=== PATIENT | male | born 1950 | race Caucasian/White ===

== ENCOUNTER 2018-02-07 16:44 | Inpatient (IN) | payer MEDICAID, OTHER ==
[2018-02-07 17:36] LABS: ADD MAN DIFF? NO
[2018-02-07 17:40] LABS: WHITE BLOOD COUNT 19.4 10^3/ul (4.8-10.8)
[2018-02-07 17:40] LABS: BASOPHILS % 0.2 % (0.0-2.0); EOSINOPHILS % 0.1 % (0.0-7.0); HEMATOCRIT 26.1 % (42.0-52.0); HEMOGLOBIN 8.4 g/dl (14.0-18.0); LYMPHOCYTES # 1.3 10^3/ul (0.8-2.9); LYMPHOCYTES % 6.6 % (15.0-51.0); MEAN CORPUSCULAR HEMOGLOBIN 26.7 pg (29.0-33.0); MEAN CORPUSCULAR HGB CONC 32.2 g/dl (32.0-37.0); MEAN CORPUSCULAR VOLUME 82.9 fl (82.0-101.0); MEAN PLATELET VOLUME 10.4 fl (7.4-10.4); MONOCYTE # 1.1 10^3/ul (0.3-0.9); MONOCYTES % 5.8 % (0.0-11.0); NEUTROPHIL # 16.8 10^3/ul (1.6-7.5); NEUTROPHILS % 86.8 % (39.0-77.0); PLATELET COUNT 215 10^3/UL (140-415); RED BLOOD COUNT 3.15 10^6/ul (4.70-6.10); RED CELL DISTRIBUTION WIDTH 15.9 % (11.5-14.5)
[2018-02-07 17:59] LABS: INR 1.22; PROTIME 15.6 Sec (11.9-14.9); PT RATIO 1.2
[2018-02-07 18:00] LABS: ALANINE AMINOTRANSFERASE 36 IU/L (13-69); ALBUMIN 2.8 g/dl (3.3-4.9); ALKALINE PHOSPHATASE 367 IU/L (42-121); ANION GAP 15 (5-13); ASPARTATE AMINO TRANSFERASE 31 IU/L (15-46); BILIRUBIN,INDIRECT 0.2 mg/dl (0-1.1); BILIRUBIN,TOTAL 0.2 mg/dl (0.2-1.3); BLOOD UREA NITROGEN 88 mg/dl (7-20); CALCIUM 7.7 mg/dl (8.4-10.2); CARBON DIOXIDE 21 mmol/L (21-31); CHLORIDE 98 mmol/L (97-110); CREATININE 2.68 mg/dl (0.61-1.24); Estimated GFR 24 mL/min (>60); GLUCOSE 196 mg/dl (70-220); PARTIAL THROMBOPLASTIN TIME 33.3 Sec (23.0-35.0); POTASSIUM 3.4 mmol/L (3.5-5.1); SODIUM 134 mmol/L (135-144); TOTAL PROTEIN 6.8 g/dl (6.1-8.1)
[2018-02-07] MEDS ORDERED: PIPER-TAZO 3.375 GM IV (PMX) 100 ML IVPB (18:00)
[2018-02-07] MEDS: SOD CHLORIDE 0.9% 1,910 ML IV (18:05)
[2018-02-07 18:10] LABS: TROPONIN-I < 0.012 ng/ml (0.000-0.120)
[2018-02-07] MEDS: PIPER-TAZO 2.25 GM (PMX) 50 ML IVPB (18:59)
[2018-02-07 19:34] LABS: ADD UMIC YES; UR ASCORBIC ACID NEGATIVE (NEGATIVE); UR BACTERIA MODERATE /HPF (NONE SEEN); UR BILIRUBIN (Dip) NEGATIVE (NEGATIVE); UR BLOOD (Dip) 2+ mg/dL (NEGATIVE); UR CLARITY TURBID (CLEAR); UR COLOR YELLOW (YELLOW); UR GLUCOSE (Dip) NEGATIVE (NEGATIVE); UR KETONES (Dip) NEGATIVE (NEGATIVE); UR LEUKOCYTE ESTERASE (Dip) 3+ Leu/ul (NEGATIVE); UR MUCUS FEW /HPF (NONE SEEN); UR NITRITE (Dip) NEGATIVE (NEGATIVE); UR NONSQUAMOUS EPITHELIAL CELL 1 /HPF (NONE SEEN); UR RBC 79 /HPF (0-5); UR SPECIFIC GRAVITY (Dip) 1.005 (1.003-1.030); UR SQUAMOUS EPITHELIAL CELL FEW /HPF (FEW); UR TOTAL PROTEIN (Dip) 1+ mg/dl (NEGATIVE); UR UROBILINOGEN (Dip) NEGATIVE (NEGATIVE); UR WBC > 182 /HPF (0-5)
[2018-02-07 19:54] LABS: PROSTATE SPECIFIC ANTIGEN 0.7 ng/ml (0.0-4.0)
[2018-02-07] MEDS: VANCOMYCIN 1 GM (PMX) 250 ML IVPB (19:57)
[2018-02-07] MEDS ORDERED: ONDANSETRON 4 MG INJ IV (20:00)
[2018-02-07] MEDS ORDERED: NACL 0.9% 3 ML SYG IV (20:00)
[2018-02-07] MEDS: CHLORHEXIDINE GLUCONATE 15 ML UD CUP MT ×2 (20:00→23:58)
[2018-02-07 22:59] LABS: LACTIC ACID 3.6 mmol/L (0.5-2.0)
[2018-02-07] MEDS ORDERED: HEPARIN 5,000 UNIT/0.5 ML VIAL (23:54)
[2018-02-07] MEDS: PIPER-TAZO 3.375 GM IV (PMX) 100 ML IVPB (23:58)
[2018-02-08] MEDS: HEPARIN 5,000 UNIT/1 ML VIAL SC ×4 (00:11→21:27)
[2018-02-08] MEDS: SOD CHLORIDE 0.9% 500 ML IV (00:19)
[2018-02-08] MEDS ORDERED: PIPER-TAZO 3.375 GM IV (PMX) 100 ML IVPB (02:00)
[2018-02-08] MEDS ORDERED: PENDING SANTYL ORDER FOR WOUND CARE XX (04:30)
[2018-02-08 05:34] LABS: ADD MAN DIFF? NO
[2018-02-08 05:38] LABS: WHITE BLOOD COUNT 16.3 10^3/ul (4.8-10.8)
[2018-02-08 05:38] LABS: BASOPHILS % 0.1 % (0.0-2.0); EOSINOPHILS % 0.1 % (0.0-7.0); HEMOGLOBIN 7.9 g/dl (14.0-18.0); LYMPHOCYTES # 0.7 10^3/ul (0.8-2.9); MEAN CORPUSCULAR HEMOGLOBIN 26.4 pg (29.0-33.0); MEAN CORPUSCULAR HGB CONC 31.6 g/dl (32.0-37.0); MEAN CORPUSCULAR VOLUME 83.6 fl (82.0-101.0); MEAN PLATELET VOLUME 10.5 fl (7.4-10.4); MONOCYTE # 0.6 10^3/ul (0.3-0.9); MONOCYTES % 3.7 % (0.0-11.0); NEUTROPHIL # 14.9 10^3/ul (1.6-7.5); NEUTROPHILS % 91.3 % (39.0-77.0); PLATELET COUNT 207 10^3/UL (140-415); RED BLOOD COUNT 2.99 10^6/ul (4.70-6.10); RED CELL DISTRIBUTION WIDTH 16.2 % (11.5-14.5)
[2018-02-08 05:57] LABS: HEMOGLOBIN A1C 6.1 % (0-5.9); LACTIC ACID 1.8 mmol/L (0.5-2.0)
[2018-02-08 06:00] LABS: ALANINE AMINOTRANSFERASE 33 IU/L (13-69); ALBUMIN 2.6 g/dl (3.3-4.9); ALBUMIN/GLOBULIN RATIO 0.78; ALKALINE PHOSPHATASE 306 IU/L (42-121); ANION GAP 13 (5-13); ASPARTATE AMINO TRANSFERASE 25 IU/L (15-46); BILIRUBIN,INDIRECT 0.1 mg/dl (0-1.1); BILIRUBIN,TOTAL 0.1 mg/dl (0.2-1.3); BLOOD UREA NITROGEN 88 mg/dl (7-20); CALCIUM 7.4 mg/dl (8.4-10.2); CARBON DIOXIDE 20 mmol/L (21-31); CHLORIDE 104 mmol/L (97-110); CHOLESTEROL 90 mg/dl (100-200); CREATININE 2.75 mg/dl (0.61-1.24); Estimated GFR 23 mL/min (>60); GLUCOSE 176 mg/dl (70-220); HDL CHOLESTEROL 9 mg/dl (30-78); LDL CHOLESTEROL,CALCULATED 28 mg/dl; MAGNESIUM 2.6 mg/dl (1.7-2.5); PHOSPHORUS 4.4 mg/dl (2.5-4.9); POTASSIUM 3.5 mmol/L (3.5-5.1); SODIUM 137 mmol/L (135-144); TOTAL PROTEIN 5.9 g/dl (6.1-8.1); TRIGLYCERIDES 266 mg/dl (0-149)
[2018-02-08] MEDS ORDERED: HEPARIN 5,000 UNIT/0.5 ML VIAL ×3 (06:17→21:03)
[2018-02-08] MEDS: PIPER-TAZO 3.375 GM IV (PMX) 100 ML IVPB ×3 (07:01→21:15)
[2018-02-08] MEDS: CHLORHEXIDINE GLUCONATE 15 ML UD CUP MT ×2 (08:41→21:15)
[2018-02-08] MEDS ORDERED: VANCOMYCIN IV PER PHARMACY XX (09:30)
[2018-02-08] MEDS: INFLUENZA VIRUS VACCINE 0.5 ML (DISPENSING) IM* (10:18)
[2018-02-08] MEDS: COLLAGENASE 5 GM (UD JAR) TOP (12:19)
[2018-02-08] MEDS: 1/2 NS + KCL 20 MEQ 1,000 ML IV (15:55)
[2018-02-09] MEDS: 1/2 NS + KCL 20 MEQ 1,000 ML IV ×3 (01:30→23:39)
[2018-02-09] MEDS ORDERED: HEPARIN 5,000 UNIT/0.5 ML VIAL ×3 (05:14→20:11)
[2018-02-09] MEDS: PIPER-TAZO 3.375 GM IV (PMX) 100 ML IVPB ×3 (05:22→21:07)
[2018-02-09] MEDS: HEPARIN 5,000 UNIT/1 ML VIAL SC ×3 (05:26→21:38)
[2018-02-09 06:16] LABS: ADD MAN DIFF? NO
[2018-02-09 06:28] LABS: WHITE BLOOD COUNT 13.4 10^3/ul (4.8-10.8)
[2018-02-09 06:28] LABS: BASOPHILS % 0.1 % (0.0-2.0); EOSINOPHILS % 0.1 % (0.0-7.0); HEMATOCRIT 25.3 % (42.0-52.0); HEMOGLOBIN 7.9 g/dl (14.0-18.0); LYMPHOCYTES # 0.9 10^3/ul (0.8-2.9); LYMPHOCYTES % 6.9 % (15.0-51.0); MEAN CORPUSCULAR HEMOGLOBIN 26.4 pg (29.0-33.0); MEAN CORPUSCULAR HGB CONC 31.2 g/dl (32.0-37.0); MEAN CORPUSCULAR VOLUME 84.6 fl (82.0-101.0); MEAN PLATELET VOLUME 10.3 fl (7.4-10.4); MONOCYTE # 0.6 10^3/ul (0.3-0.9); MONOCYTES % 4.7 % (0.0-11.0); NEUTROPHIL # 11.6 10^3/ul (1.6-7.5); NEUTROPHILS % 86.3 % (39.0-77.0); PLATELET COUNT 258 10^3/UL (140-415); RED BLOOD COUNT 2.99 10^6/ul (4.70-6.10); RED CELL DISTRIBUTION WIDTH 16.4 % (11.5-14.5)
[2018-02-09 06:56] LABS: ANION GAP 12 (5-13); BLOOD UREA NITROGEN 77 mg/dl (7-20); CALCIUM 7.6 mg/dl (8.4-10.2); CARBON DIOXIDE 19 mmol/L (21-31); CHLORIDE 110 mmol/L (97-110); CREATININE 2.65 mg/dl (0.61-1.24); Estimated GFR 24 mL/min (>60); GLUCOSE 190 mg/dl (70-220); POTASSIUM 3.3 mmol/L (3.5-5.1); SODIUM 141 mmol/L (135-144)
[2018-02-09 07:07] LABS: BLOOD UREA NITROGEN 77 mg/dl (7-20)
[2018-02-09 07:16] LABS: VANCOMYCIN,RANDOM 7.9 ug/ml
[2018-02-09] MEDS: CHLORHEXIDINE GLUCONATE 15 ML UD CUP MT ×2 (07:44→21:07)
[2018-02-09] MEDS: COLLAGENASE 5 GM (UD JAR) TOP (08:33)
[2018-02-09 10:57] LABS: INR 1.24; PROTIME 15.8 Sec (11.9-14.9); PT RATIO 1.2
[2018-02-09 10:58] LABS: PARTIAL THROMBOPLASTIN TIME 34.8 Sec (23.0-35.0)
[2018-02-09] MEDS: POTASSIUM CHLORIDE (SR) 20 MEQ TAB PO (15:44)
[2018-02-09] MEDS: VANCOMYCIN 1.25 GM in SOD CHLORIDE 0.9% 250 ML IVPB (16:58)
[2018-02-10] MEDS: ACETAMINOPHEN 325 MG TAB PO (01:58)
[2018-02-10] MEDS: HEPARIN 5,000 UNIT/1 ML VIAL SC ×3 (04:25→20:44)
[2018-02-10] MEDS: 1/2 NS + KCL 20 MEQ 1,000 ML IV (04:52)
[2018-02-10] MEDS: PIPER-TAZO 3.375 GM IV (PMX) 100 ML IVPB ×2 (04:57→15:11)
[2018-02-10 06:12] LABS: ADD MAN DIFF? NO
[2018-02-10 06:25] LABS: BASOPHILS % 0.2 % (0.0-2.0); EOSINOPHILS % 0.2 % (0.0-7.0); LYMPHOCYTES # 0.8 10^3/ul (0.8-2.9); LYMPHOCYTES % 6.6 % (15.0-51.0); MEAN CORPUSCULAR HEMOGLOBIN 26.4 pg (29.0-33.0); MEAN CORPUSCULAR HGB CONC 30.8 g/dl (32.0-37.0); MEAN CORPUSCULAR VOLUME 85.8 fl (82.0-101.0); MONOCYTE # 0.2 10^3/ul (0.3-0.9); MONOCYTES % 1.7 % (0.0-11.0); NEUTROPHIL # 10.7 10^3/ul (1.6-7.5); NEUTROPHILS % 89.2 % (39.0-77.0); PLATELET COUNT 266 10^3/UL (140-415); RED BLOOD COUNT 3.03 10^6/ul (4.70-6.10); RED CELL DISTRIBUTION WIDTH 16.6 % (11.5-14.5)
[2018-02-10 06:54] LABS: ANION GAP 11 (5-13); BLOOD UREA NITROGEN 70 mg/dl (7-20); CALCIUM 7.9 mg/dl (8.4-10.2); CARBON DIOXIDE 18 mmol/L (21-31); CHLORIDE 113 mmol/L (97-110); CREATININE 2.78 mg/dl (0.61-1.24); Estimated GFR 23 mL/min (>60); GLUCOSE 128 mg/dl (70-220); POTASSIUM 3.9 mmol/L (3.5-5.1); SODIUM 142 mmol/L (135-144)
[2018-02-10] MEDS ORDERED: CEFAZOLIN 1 GM INJ (07:00)
[2018-02-10] MEDS ORDERED: EPHEDrine SULFATE 50 MG/5 ML SYG (07:00)
[2018-02-10] MEDS: CHLORHEXIDINE GLUCONATE 15 ML UD CUP MT ×2 (08:00→20:43)
[2018-02-10] MEDS: COLLAGENASE 5 GM (UD JAR) TOP (09:11)
[2018-02-10] MEDS ORDERED: PROPOFOL 20 ML (11:38)
[2018-02-10] MEDS ORDERED: LIDOCAINE 2% (SDV) 5 ML INJ (11:38)
[2018-02-10] MEDS ORDERED: ROCURONIUM 50 MG INJ (11:38)
[2018-02-10] MEDS ORDERED: NEOSTIGMINE 3 MG/3 ML SYRINGE (11:39)
[2018-02-10] MEDS ORDERED: GLYCOPYRROLATE 0.4 MG INJ (11:39)
[2018-02-10] MEDS ORDERED: SUCCINYLCHOLINE CHLORIDE 100 MG/5 ML SYG IV (11:39)
[2018-02-10] MEDS ORDERED: MEPERIDINE 25 MG INJ IV (13:00)
[2018-02-10] MEDS ORDERED: HYDROmorphONE 1 MG/5 ML IV SYRINGE IV (13:00)
[2018-02-10] MEDS ORDERED: EPHEDrine SULFATE 50 MG/5 ML SYG IV (13:00)
[2018-02-10] MEDS ORDERED: ONDANSETRON 4 MG INJ IV (13:00)
[2018-02-10] MEDS ORDERED: MIDAZOLAM 1 MG/ML 2 ML INJ IV (13:00)
[2018-02-10] MEDS ORDERED: hydrALAzine 20 MG INJ IV (13:00)
[2018-02-10] MEDS ORDERED: LABETALOL HCL 20MG INJ IV (13:00)
[2018-02-10] MEDS ORDERED: FENTAnyl 50 MCG/ML VIAL IV ×3 (13:00)
[2018-02-10] MEDS ORDERED: OXYCODONE/ACETAMINOPHEN (5/325) TAB PO ×2 (13:00)
[2018-02-10] MEDS ORDERED: METOCLOPRAMIDE 10 MG INJ IV (13:00)
[2018-02-10] MEDS ORDERED: DIPHENHYDRAMINE 50 MG INJ IV (13:00)
[2018-02-10] MEDS: HYDROmorphONE 1 MG/5 ML IV SYRINGE IV ×4 (14:04→14:58)
[2018-02-10] MEDS: IOHEXOL 300MG/ML 30 ML BTL (14:15)
[2018-02-10] MEDS ORDERED: VANCOMYCIN IV PER PHARMACY XX (16:30)
[2018-02-10] MEDS: LEVOFLOXACIN 500 MG TAB PO (17:33)
[2018-02-10] MEDS ORDERED: HEPARIN 5,000 UNIT/0.5 ML VIAL (20:15)
[2018-02-11] MEDS: 1/2 NS + KCL 20 MEQ 1,000 ML IV ×2 (02:32→16:39)
[2018-02-11] MEDS ORDERED: HEPARIN 5,000 UNIT/0.5 ML VIAL ×3 (05:41→21:38)
[2018-02-11] MEDS: HEPARIN 5,000 UNIT/1 ML VIAL SC ×3 (06:17→22:15)
[2018-02-11 06:19] LABS: WHITE BLOOD COUNT 14.7 10^3/ul (4.8-10.8)
[2018-02-11 06:19] LABS: ADD MAN DIFF? NO; BASOPHILS % 0.1 % (0.0-2.0); EOSINOPHILS # 0.1 10^3/ul (0.0-0.5); EOSINOPHILS % 0.3 % (0.0-7.0); HEMATOCRIT 25.9 % (42.0-52.0); HEMOGLOBIN 7.8 g/dl (14.0-18.0); LYMPHOCYTES # 1.1 10^3/ul (0.8-2.9); LYMPHOCYTES % 7.5 % (15.0-51.0); MEAN CORPUSCULAR HEMOGLOBIN 26.6 pg (29.0-33.0); MEAN CORPUSCULAR HGB CONC 30.1 g/dl (32.0-37.0); MEAN CORPUSCULAR VOLUME 88.4 fl (82.0-101.0); MEAN PLATELET VOLUME 10.2 fl (7.4-10.4); MONOCYTE # 0.6 10^3/ul (0.3-0.9); MONOCYTES % 4.3 % (0.0-11.0); NEUTROPHIL # 12.6 10^3/ul (1.6-7.5); NEUTROPHILS % 85.8 % (39.0-77.0); PLATELET COUNT 317 10^3/UL (140-415); RED BLOOD COUNT 2.93 10^6/ul (4.70-6.10); RED CELL DISTRIBUTION WIDTH 16.6 % (11.5-14.5)
[2018-02-11 06:54] LABS: VANCOMYCIN,RANDOM 13.8 ug/ml
[2018-02-11 06:58] LABS: ANION GAP 15 (5-13); BLOOD UREA NITROGEN 68 mg/dl (7-20); CALCIUM 7.8 mg/dl (8.4-10.2); CARBON DIOXIDE 15 mmol/L (21-31); CHLORIDE 110 mmol/L (97-110); CREATININE 3.06 mg/dl (0.61-1.24); Estimated GFR 21 mL/min (>60); GLUCOSE 189 mg/dl (70-220); POTASSIUM 4.2 mmol/L (3.5-5.1); SODIUM 140 mmol/L (135-144)
[2018-02-11] MEDS: COLLAGENASE 5 GM (UD JAR) TOP (08:30)
[2018-02-11] MEDS: CHLORHEXIDINE GLUCONATE 15 ML UD CUP MT ×2 (08:30→21:44)
[2018-02-11] MEDS: AMPICILLIN 1 GM/NS (PMX) 50 ML IVPB (16:38)
[2018-02-11] MEDS: LEVOFLOXACIN 250 MG TAB PO (18:37)
[2018-02-11] MEDS: L ACIDOPHIL/B LACTIS/B LONGUM CAPSULE PO (21:43)
[2018-02-12] MEDS: AMPICILLIN 1 GM/NS (PMX) 50 ML IVPB ×3 (01:33→21:17)
[2018-02-12] MEDS: 1/2 NS + KCL 20 MEQ 1,000 ML IV ×2 (04:59→14:07)
[2018-02-12] MEDS ORDERED: HEPARIN 5,000 UNIT/0.5 ML VIAL ×3 (05:14→21:10)
[2018-02-12] MEDS: HEPARIN 5,000 UNIT/1 ML VIAL SC ×3 (05:23→22:02)
[2018-02-12] MEDS: L ACIDOPHIL/B LACTIS/B LONGUM CAPSULE PO ×2 (09:09→21:17)
[2018-02-12] MEDS: CHLORHEXIDINE GLUCONATE 15 ML UD CUP MT ×2 (09:09→20:44)
[2018-02-12] MEDS: COLLAGENASE 5 GM (UD JAR) TOP (09:09)
[2018-02-12 11:43] LABS: ALANINE AMINOTRANSFERASE 15 IU/L (13-69); ALBUMIN 2.7 g/dl (3.3-4.9); ALBUMIN/GLOBULIN RATIO 0.65; ALKALINE PHOSPHATASE 322 IU/L (42-121); ANION GAP 10 (5-13); ASPARTATE AMINO TRANSFERASE 20 IU/L (15-46); BILIRUBIN,INDIRECT 0.3 mg/dl (0-1.1); BILIRUBIN,TOTAL 0.3 mg/dl (0.2-1.3); BLOOD UREA NITROGEN 36 mg/dl (7-20); CALCIUM 8.6 mg/dl (8.4-10.2); CARBON DIOXIDE 16 mmol/L (21-31); CHLORIDE 116 mmol/L (97-110); CREATININE 1.55 mg/dl (0.61-1.24); Estimated GFR 45 mL/min (>60); GLUCOSE 155 mg/dl (70-220); POTASSIUM 3.9 mmol/L (3.5-5.1); SODIUM 142 mmol/L (135-144); TOTAL PROTEIN 6.8 g/dl (6.1-8.1)
[2018-02-12] MEDS: NYSTATIN SUSP 5 ML CUP PO ×2 (18:18→21:17)
[2018-02-12] MEDS: LEVOFLOXACIN 250 MG TAB PO (18:38)
[2018-02-13] MEDS: 1/2 NS + KCL 20 MEQ 1,000 ML IV ×2 (04:33→21:36)
[2018-02-13] MEDS ORDERED: HEPARIN 5,000 UNIT/0.5 ML VIAL ×3 (05:24→21:24)
[2018-02-13] MEDS: HEPARIN 5,000 UNIT/1 ML VIAL SC ×3 (05:54→22:00)
[2018-02-13 06:13] LABS: ADD MAN DIFF? NO
[2018-02-13 06:15] LABS: WHITE BLOOD COUNT 16.6 10^3/ul (4.8-10.8)
[2018-02-13 06:15] LABS: BASOPHILS % 0.1 % (0.0-2.0); EOSINOPHILS % 0.2 % (0.0-7.0); HEMATOCRIT 29.8 % (42.0-52.0); HEMOGLOBIN 9.1 g/dl (14.0-18.0); LYMPHOCYTES # 1.2 10^3/ul (0.8-2.9); LYMPHOCYTES % 7.3 % (15.0-51.0); MEAN CORPUSCULAR HEMOGLOBIN 26.5 pg (29.0-33.0); MEAN CORPUSCULAR HGB CONC 30.5 g/dl (32.0-37.0); MEAN CORPUSCULAR VOLUME 86.9 fl (82.0-101.0); MONOCYTE # 0.6 10^3/ul (0.3-0.9); MONOCYTES % 3.5 % (0.0-11.0); NEUTROPHIL # 14.5 10^3/ul (1.6-7.5); NEUTROPHILS % 87.2 % (39.0-77.0); PLATELET COUNT 449 10^3/UL (140-415); RED BLOOD COUNT 3.43 10^6/ul (4.70-6.10); RED CELL DISTRIBUTION WIDTH 17.7 % (11.5-14.5)
[2018-02-13 07:00] LABS: ANION GAP 12 (5-13); BLOOD UREA NITROGEN 29 mg/dl (7-20); CALCIUM 8.2 mg/dl (8.4-10.2); CARBON DIOXIDE 18 mmol/L (21-31); CHLORIDE 113 mmol/L (97-110); CREATININE 1.09 mg/dl (0.61-1.24); Estimated GFR > 60 mL/min (>60); GLUCOSE 152 mg/dl (70-220); MAGNESIUM 1.8 mg/dl (1.7-2.5); PHOSPHORUS 3.4 mg/dl (2.5-4.9); POTASSIUM 3.9 mmol/L (3.5-5.1); SODIUM 143 mmol/L (135-144)
[2018-02-13] MEDS ORDERED: morphine 2 MG INJ IV (07:30)
[2018-02-13] MEDS: CHLORHEXIDINE GLUCONATE 15 ML UD CUP MT ×2 (08:38→21:36)
[2018-02-13] MEDS: COLLAGENASE 5 GM (UD JAR) TOP (08:41)
[2018-02-13] MEDS: NYSTATIN SUSP 5 ML CUP PO ×4 (08:41→21:35)
[2018-02-13] MEDS: L ACIDOPHIL/B LACTIS/B LONGUM CAPSULE PO ×2 (08:44→21:35)
[2018-02-13] MEDS: AMPICILLIN 1 GM/NS (PMX) 50 ML IVPB ×2 (08:46→18:45)
[2018-02-13] MEDS: MAGNESIUM SULFATE 2 GM/50 ML 50 ML IVPB (12:16)
[2018-02-13] MEDS: LEVOFLOXACIN 250MG/D5W (PMX) 50 ML IVPB (17:43)
[2018-02-13] MEDS ORDERED: SOD CHLORIDE 0.9% 500 ML IV (22:30)
[2018-02-14] MEDS: AMPICILLIN 1 GM/NS (PMX) 50 ML IVPB ×4 (01:32→16:58)
[2018-02-14] MEDS ORDERED: HEPARIN 5,000 UNIT/0.5 ML VIAL ×3 (05:42→21:59)
[2018-02-14] MEDS: HEPARIN 5,000 UNIT/1 ML VIAL SC ×3 (05:56→22:31)
[2018-02-14 05:59] LABS: ADD MAN DIFF? NO
[2018-02-14 06:10] LABS: WHITE BLOOD COUNT 18.2 10^3/ul (4.8-10.8)
[2018-02-14 06:10] LABS: BASOPHILS % 0.1 % (0.0-2.0); EOSINOPHILS % 0.1 % (0.0-7.0); HEMATOCRIT 30.5 % (42.0-52.0); LYMPHOCYTES # 1.3 10^3/ul (0.8-2.9); LYMPHOCYTES % 7.2 % (15.0-51.0); MEAN CORPUSCULAR HEMOGLOBIN 26.7 pg (29.0-33.0); MEAN CORPUSCULAR HGB CONC 29.5 g/dl (32.0-37.0); MEAN CORPUSCULAR VOLUME 90.5 fl (82.0-101.0); MONOCYTE # 0.7 10^3/ul (0.3-0.9); MONOCYTES % 3.8 % (0.0-11.0); NEUTROPHIL # 15.8 10^3/ul (1.6-7.5); NEUTROPHILS % 87.1 % (39.0-77.0); PLATELET COUNT 474 10^3/UL (140-415); RED BLOOD COUNT 3.37 10^6/ul (4.70-6.10); RED CELL DISTRIBUTION WIDTH 17.9 % (11.5-14.5)
[2018-02-14 06:34] LABS: ANION GAP 9 (5-13); BLOOD UREA NITROGEN 23 mg/dl (7-20); CALCIUM 8.1 mg/dl (8.4-10.2); CARBON DIOXIDE 17 mmol/L (21-31); CHLORIDE 117 mmol/L (97-110); Estimated GFR > 60 mL/min (>60); GLUCOSE 130 mg/dl (70-220); SODIUM 143 mmol/L (135-144)
[2018-02-14] MEDS: L ACIDOPHIL/B LACTIS/B LONGUM CAPSULE PO ×2 (09:33→22:23)
[2018-02-14] MEDS: NYSTATIN SUSP 5 ML CUP PO ×4 (09:33→22:23)
[2018-02-14] MEDS: CHLORHEXIDINE GLUCONATE 15 ML UD CUP MT ×2 (09:33→22:22)
[2018-02-14] MEDS: COLLAGENASE 5 GM (UD JAR) TOP (09:34)
[2018-02-14] MEDS: 1/2 NS + KCL 20 MEQ 1,000 ML IV (12:26)
[2018-02-14] MEDS: LEVOFLOXACIN 250MG/D5W (PMX) 50 ML IVPB (18:05)
[2018-02-15] MEDS: AMPICILLIN 1 GM/NS (PMX) 50 ML IVPB ×4 (01:07→18:21)
[2018-02-15] MEDS ORDERED: HEPARIN 5,000 UNIT/0.5 ML VIAL ×3 (06:03→20:11)
[2018-02-15] MEDS: 1/2 NS + KCL 20 MEQ 1,000 ML IV ×2 (06:06→12:59)
[2018-02-15] MEDS: HEPARIN 5,000 UNIT/1 ML VIAL SC ×3 (06:10→21:07)
[2018-02-15] MEDS: CHLORHEXIDINE GLUCONATE 15 ML UD CUP MT ×2 (08:24→20:28)
[2018-02-15] MEDS: COLLAGENASE 5 GM (UD JAR) TOP (08:24)
[2018-02-15] MEDS: NYSTATIN SUSP 5 ML CUP PO ×4 (08:25→20:28)
[2018-02-15] MEDS: L ACIDOPHIL/B LACTIS/B LONGUM CAPSULE PO ×3 (08:25→20:28)
[2018-02-15] MEDS: BALSAM PERU/CASTOR OIL 60 GM TUBE TOP (08:25)
[2018-02-15 08:37] LABS: ADD MAN DIFF? NO
[2018-02-15 08:40] LABS: BASOPHILS % 0.1 % (0.0-2.0); EOSINOPHILS % 0.1 % (0.0-7.0); HEMATOCRIT 27.4 % (42.0-52.0); HEMOGLOBIN 8.5 g/dl (14.0-18.0); LYMPHOCYTES # 1.5 10^3/ul (0.8-2.9); LYMPHOCYTES % 6.8 % (15.0-51.0); MEAN CORPUSCULAR HEMOGLOBIN 27.3 pg (29.0-33.0); MEAN CORPUSCULAR VOLUME 88.1 fl (82.0-101.0); MEAN PLATELET VOLUME 10.1 fl (7.4-10.4); MONOCYTE # 0.8 10^3/ul (0.3-0.9); NEUTROPHIL # 18.6 10^3/ul (1.6-7.5); NEUTROPHILS % 87.9 % (39.0-77.0); PLATELET COUNT 511 10^3/UL (140-415); RED BLOOD COUNT 3.11 10^6/ul (4.70-6.10); RED CELL DISTRIBUTION WIDTH 18.4 % (11.5-14.5)
[2018-02-15 08:40] LABS: WHITE BLOOD COUNT 21.2 10^3/ul (4.8-10.8)
[2018-02-15 09:18] LABS: ANION GAP 11 (5-13); BLOOD UREA NITROGEN 20 mg/dl (7-20); CARBON DIOXIDE 15 mmol/L (21-31); CHLORIDE 114 mmol/L (97-110); CREATININE 0.88 mg/dl (0.61-1.24); Estimated GFR > 60 mL/min (>60); GLUCOSE 125 mg/dl (70-220); POTASSIUM 3.7 mmol/L (3.5-5.1); SODIUM 140 mmol/L (135-144)
[2018-02-15] MEDS: LEVOFLOXACIN 250MG/D5W (PMX) 50 ML IVPB (17:41)
[2018-02-15] MEDS: IOHEXOL 14.3 MG(I)/ML (ADULT) BTL PO (18:21)
[2018-02-15] MEDS ORDERED: morphine LIQ (10 MG/5 ML) CUP PO (19:09)
[2018-02-16] MEDS: 1/2 NS + KCL 20 MEQ 1,000 ML IV ×2 (00:16→13:02)
[2018-02-16] MEDS: AMPICILLIN 1 GM/NS (PMX) 50 ML IVPB ×3 (00:16→13:02)
[2018-02-16] MEDS: SOD CHLORIDE 0.9% 100 ML (01:35)
[2018-02-16] MEDS: IOHEXOL 300MG/ML 150 ML BTL (01:35)
[2018-02-16] MEDS ORDERED: HEPARIN 5,000 UNIT/0.5 ML VIAL ×3 (05:08→21:29)
[2018-02-16] MEDS: HEPARIN 5,000 UNIT/1 ML VIAL SC ×3 (05:35→21:43)
[2018-02-16 06:28] LABS: ADD MAN DIFF? NO
[2018-02-16 06:53] LABS: BASOPHILS % 0.2 % (0.0-2.0); EOSINOPHILS % 0.1 % (0.0-7.0); HEMATOCRIT 29.1 % (42.0-52.0); HEMOGLOBIN 8.7 g/dl (14.0-18.0); LYMPHOCYTES # 1.4 10^3/ul (0.8-2.9); LYMPHOCYTES % 7.3 % (15.0-51.0); MEAN CORPUSCULAR HEMOGLOBIN 26.9 pg (29.0-33.0); MEAN CORPUSCULAR HGB CONC 29.9 g/dl (32.0-37.0); MEAN CORPUSCULAR VOLUME 90.1 fl (82.0-101.0); MEAN PLATELET VOLUME 9.9 fl (7.4-10.4); MONOCYTE # 0.6 10^3/ul (0.3-0.9); MONOCYTES % 3.4 % (0.0-11.0); NEUTROPHIL # 16.6 10^3/ul (1.6-7.5); NEUTROPHILS % 87.9 % (39.0-77.0); PLATELET COUNT 561 10^3/UL (140-415); RED BLOOD COUNT 3.23 10^6/ul (4.70-6.10); RED CELL DISTRIBUTION WIDTH 19.1 % (11.5-14.5)
[2018-02-16 06:53] LABS: WHITE BLOOD COUNT 18.9 10^3/ul (4.8-10.8)
[2018-02-16 07:23] LABS: ANION GAP 11 (5-13); BLOOD UREA NITROGEN 19 mg/dl (7-20); CALCIUM 8.1 mg/dl (8.4-10.2); CARBON DIOXIDE 17 mmol/L (21-31); CHLORIDE 111 mmol/L (97-110); CREATININE 0.99 mg/dl (0.61-1.24); Estimated GFR > 60 mL/min (>60); GLUCOSE 109 mg/dl (70-220); POTASSIUM 3.5 mmol/L (3.5-5.1); SODIUM 139 mmol/L (135-144)
[2018-02-16] MEDS: NYSTATIN SUSP 5 ML CUP PO ×4 (08:53→20:32)
[2018-02-16] MEDS: CHLORHEXIDINE GLUCONATE 15 ML UD CUP MT ×2 (08:53→20:30)
[2018-02-16] MEDS: L ACIDOPHIL/B LACTIS/B LONGUM CAPSULE PO ×2 (08:53→20:32)
[2018-02-16] MEDS: BALSAM PERU/CASTOR OIL 60 GM TUBE TOP (08:54)
[2018-02-16] MEDS: COLLAGENASE 5 GM (UD JAR) TOP (08:54)
[2018-02-16] MEDS: PIPER-TAZO 3.375 GM IV (PMX) 100 ML IVPB ×2 (14:18→17:25)
[2018-02-17] MEDS: PIPER-TAZO 3.375 GM IV (PMX) 100 ML IVPB ×3 (00:35→12:49)
[2018-02-17] MEDS: 1/2 NS + KCL 20 MEQ 1,000 ML IV ×2 (04:37→18:01)
[2018-02-17] MEDS ORDERED: HEPARIN 5,000 UNIT/0.5 ML VIAL ×2 (05:16→21:12)
[2018-02-17] MEDS: HEPARIN 5,000 UNIT/1 ML VIAL SC ×3 (05:32→21:36)
[2018-02-17 08:06] LABS: ADD MAN DIFF? NO
[2018-02-17 08:12] LABS: BASOPHILS % 0.2 % (0.0-2.0); HEMATOCRIT 28.4 % (42.0-52.0); HEMOGLOBIN 8.5 g/dl (14.0-18.0); LYMPHOCYTES # 0.9 10^3/ul (0.8-2.9); LYMPHOCYTES % 4.4 % (15.0-51.0); MEAN CORPUSCULAR HGB CONC 29.9 g/dl (32.0-37.0); MEAN CORPUSCULAR VOLUME 90.2 fl (82.0-101.0); MEAN PLATELET VOLUME 9.7 fl (7.4-10.4); MONOCYTE # 0.6 10^3/ul (0.3-0.9); MONOCYTES % 2.9 % (0.0-11.0); NEUTROPHIL # 19.2 10^3/ul (1.6-7.5); NEUTROPHILS % 91.5 % (39.0-77.0); PLATELET COUNT 592 10^3/UL (140-415); RED BLOOD COUNT 3.15 10^6/ul (4.70-6.10); RED CELL DISTRIBUTION WIDTH 19.9 % (11.5-14.5)
[2018-02-17 08:31] LABS: ANION GAP 13 (5-13); BLOOD UREA NITROGEN 22 mg/dl (7-20); CALCIUM 7.9 mg/dl (8.4-10.2); CARBON DIOXIDE 15 mmol/L (21-31); CHLORIDE 112 mmol/L (97-110); CREATININE 1.27 mg/dl (0.61-1.24); Estimated GFR 57 mL/min (>60); GLUCOSE 101 mg/dl (70-220); POTASSIUM 3.9 mmol/L (3.5-5.1); SODIUM 140 mmol/L (135-144)
[2018-02-17] MEDS: NYSTATIN SUSP 5 ML CUP PO ×4 (09:00→21:00)
[2018-02-17] MEDS: L ACIDOPHIL/B LACTIS/B LONGUM CAPSULE PO ×2 (09:00→21:00)
[2018-02-17] MEDS: CHLORHEXIDINE GLUCONATE 15 ML UD CUP MT ×2 (09:14→21:21)
[2018-02-17] MEDS: BALSAM PERU/CASTOR OIL 60 GM TUBE TOP (09:14)
[2018-02-17] MEDS: COLLAGENASE 5 GM (UD JAR) TOP (09:14)
[2018-02-17] MEDS: AMPICILLIN/SULB 3 GM/NS (PMX) 100 ML IVPB ×2 (17:37→23:31)
[2018-02-17] MEDS: CIPROFLOXACIN 400MG/D5W 200 ML IVPB (21:22)
[2018-02-18] MEDS ORDERED: HEPARIN 5,000 UNIT/0.5 ML VIAL ×3 (04:58→20:24)
[2018-02-18] MEDS: AMPICILLIN/SULB 3 GM/NS (PMX) 100 ML IVPB ×3 (05:02→17:57)
[2018-02-18] MEDS: HEPARIN 5,000 UNIT/1 ML VIAL SC ×3 (05:09→20:33)
[2018-02-18] MEDS: CHLORHEXIDINE GLUCONATE 15 ML UD CUP MT ×2 (08:31→20:26)
[2018-02-18] MEDS: NYSTATIN SUSP 5 ML CUP PO ×4 (08:31→20:26)
[2018-02-18] MEDS: 1/2 NS + KCL 20 MEQ 1,000 ML IV (08:31)
[2018-02-18] MEDS: CIPROFLOXACIN 400MG/D5W 200 ML IVPB ×2 (08:32→20:27)
[2018-02-18] MEDS: COLLAGENASE 5 GM (UD JAR) TOP (08:39)
[2018-02-18] MEDS: BALSAM PERU/CASTOR OIL 60 GM TUBE TOP (08:39)
[2018-02-18] MEDS: L ACIDOPHIL/B LACTIS/B LONGUM CAPSULE PO ×2 (08:40→20:27)
[2018-02-18 14:53] LABS: ADD MAN DIFF? NO
[2018-02-18 14:55] LABS: BASOPHILS % 0.3 % (0.0-2.0); EOSINOPHILS % 0.1 % (0.0-7.0); HEMATOCRIT 27.9 % (42.0-52.0); HEMOGLOBIN 8.3 g/dl (14.0-18.0); LYMPHOCYTES # 0.8 10^3/ul (0.8-2.9); LYMPHOCYTES % 5.2 % (15.0-51.0); MEAN CORPUSCULAR HEMOGLOBIN 27.1 pg (29.0-33.0); MEAN CORPUSCULAR HGB CONC 29.7 g/dl (32.0-37.0); MEAN CORPUSCULAR VOLUME 91.2 fl (82.0-101.0); MEAN PLATELET VOLUME 9.3 fl (7.4-10.4); MONOCYTE # 0.5 10^3/ul (0.3-0.9); MONOCYTES % 3.5 % (0.0-11.0); NEUTROPHIL # 13.6 10^3/ul (1.6-7.5); PLATELET COUNT 549 10^3/UL (140-415); RED BLOOD COUNT 3.06 10^6/ul (4.70-6.10); RED CELL DISTRIBUTION WIDTH 21.1 % (11.5-14.5)
[2018-02-18 14:55] LABS: WHITE BLOOD COUNT 15.1 10^3/ul (4.8-10.8)
[2018-02-18 15:14] LABS: ANION GAP 12 (5-13); BLOOD UREA NITROGEN 32 mg/dl (7-20); CALCIUM 7.4 mg/dl (8.4-10.2); CARBON DIOXIDE 14 mmol/L (21-31); CHLORIDE 114 mmol/L (97-110); CREATININE 2.41 mg/dl (0.61-1.24); Estimated GFR 27 mL/min (>60); GLUCOSE 90 mg/dl (70-220); POTASSIUM 4.1 mmol/L (3.5-5.1); SODIUM 140 mmol/L (135-144)
[2018-02-19] MEDS: AMPICILLIN/SULB 3 GM/NS (PMX) 100 ML IVPB ×4 (00:28→22:08)
[2018-02-19] MEDS: 1/2 NS + KCL 20 MEQ 1,000 ML IV ×2 (00:28→10:19)
[2018-02-19] MEDS ORDERED: HEPARIN 5,000 UNIT/0.5 ML VIAL ×2 (05:17→21:59)
[2018-02-19] MEDS: HEPARIN 5,000 UNIT/1 ML VIAL SC ×3 (05:28→22:11)
[2018-02-19] MEDS: CHLORHEXIDINE GLUCONATE 15 ML UD CUP MT ×2 (09:48→22:07)
[2018-02-19] MEDS: CIPROFLOXACIN 400MG/D5W 200 ML IVPB (09:48)
[2018-02-19] MEDS: L ACIDOPHIL/B LACTIS/B LONGUM CAPSULE PO ×2 (09:49→21:00)
[2018-02-19] MEDS: NYSTATIN SUSP 5 ML CUP PO ×5 (09:49→22:07)
[2018-02-19] MEDS: BALSAM PERU/CASTOR OIL 60 GM TUBE TOP (09:49)
[2018-02-19] MEDS: COLLAGENASE 5 GM (UD JAR) TOP (09:49)
[2018-02-19] MEDS: DEXTROSE 5%-0.9% NACL 1,000 ML IV ×2 (13:34→17:41)
[2018-02-19] MEDS: SOD CHLORIDE 0.9% 1,000 ML IV (13:34)
[2018-02-20] MEDS: DEXTROSE 5%-0.9% NACL 1,000 ML IV ×2 (03:52→14:03)
[2018-02-20] MEDS ORDERED: HEPARIN 5,000 UNIT/0.5 ML VIAL ×2 (05:22→14:01)
[2018-02-20] MEDS: HEPARIN 5,000 UNIT/1 ML VIAL SC ×3 (06:03→22:47)
[2018-02-20] MEDS: CIPROFLOXACIN 400MG/D5W 200 ML IVPB (08:27)
[2018-02-20] MEDS: AMPICILLIN/SULB 3 GM/NS (PMX) 100 ML IVPB ×2 (08:28→21:37)
[2018-02-20] MEDS: ACETAMINOPHEN 325 MG TAB PO (08:28)
[2018-02-20] MEDS: COLLAGENASE 5 GM (UD JAR) TOP (08:29)
[2018-02-20] MEDS: NYSTATIN SUSP 5 ML CUP PO ×4 (08:29→21:00)
[2018-02-20] MEDS: CHLORHEXIDINE GLUCONATE 15 ML UD CUP MT ×2 (08:29→20:00)
[2018-02-20] MEDS: L ACIDOPHIL/B LACTIS/B LONGUM CAPSULE PO ×2 (09:00→21:00)
[2018-02-20] MEDS: BALSAM PERU/CASTOR OIL 60 GM TUBE TOP (09:00)
[2018-02-20] MEDS ORDERED: TRIMETHOBENZAMIDE 100 MG/ML VIAL IM (11:00)
[2018-02-20 11:01] LABS: ADD MAN DIFF? NO
[2018-02-20 11:20] LABS: BASOPHIL # 0.1 10^3/ul (0.0-0.1); BASOPHILS % 0.4 % (0.0-2.0); EOSINOPHILS % 0.2 % (0.0-7.0); HEMATOCRIT 29.5 % (42.0-52.0); LYMPHOCYTES # 0.7 10^3/ul (0.8-2.9); MEAN CORPUSCULAR HEMOGLOBIN 27.4 pg (29.0-33.0); MEAN CORPUSCULAR HGB CONC 30.5 g/dl (32.0-37.0); MEAN CORPUSCULAR VOLUME 89.7 fl (82.0-101.0); MEAN PLATELET VOLUME 9.7 fl (7.4-10.4); MONOCYTE # 0.6 10^3/ul (0.3-0.9); MONOCYTES % 4.4 % (0.0-11.0); NEUTROPHILS % 89.1 % (39.0-77.0); PLATELET COUNT 491 10^3/UL (140-415); RED BLOOD COUNT 3.29 10^6/ul (4.70-6.10); RED CELL DISTRIBUTION WIDTH 20.8 % (11.5-14.5)
[2018-02-20 11:20] LABS: WHITE BLOOD COUNT 13.5 10^3/ul (4.8-10.8)
[2018-02-20 11:44] LABS: BLOOD UREA NITROGEN 44 mg/dl (7-20)
[2018-02-20 11:44] LABS: CREATININE 3.43 mg/dl (0.61-1.24)
[2018-02-20] MEDS: ONDANSETRON INJ 8 MG in SOD CHLORIDE 0.9% 50 ML IV (12:13)
[2018-02-20 12:37] LABS: ANION GAP 19 (5-13); BLOOD UREA NITROGEN 45 mg/dl (7-20); CALCIUM 7.9 mg/dl (8.4-10.2); CARBON DIOXIDE 12 mmol/L (21-31); CHLORIDE 116 mmol/L (97-110); CREATININE 3.47 mg/dl (0.61-1.24); Estimated GFR 18 mL/min (>60); GLUCOSE 156 mg/dl (70-220); POTASSIUM 3.6 mmol/L (3.5-5.1); SODIUM 147 mmol/L (135-144)
[2018-02-20 12:56] LABS: OCCULT BLOOD STOOL NEGATIVE (NEGATIVE)
[2018-02-20] MEDS ORDERED: ONDANSETRON 4 MG INJ IV (14:00)
[2018-02-20] MEDS: DEXTROSE 5%-0.45% NACL 1,000 ML IV (18:36)
[2018-02-20 20:43] LABS: AADO2 Arterial 459.7 mmHg (7.0-24.0); Allen Test ACCEPTAB; Arterial Base Excess -17.2 mmol/L (-3.0-3); Arterial Blood Gas Oxygen Sat 98.9 mmHG (95.0-98.0); Arterial COHb 0.3 % (0.0-3.0); Arterial Fraction of Oxyhgb 98.5 % (93.0-99.0); Arterial HCO3 10.8 mmol/L (22.0-26.0); Arterial MetHb 0.1 % (0.0-1.5); Arterial pCO2 33.3 mmhg (35-45); MODE MASK - NRB; Site Right Radial
[2018-02-20] MEDS: NA BICARBONATE 8.4% 50 ML SYG IV (21:40)
[2018-02-20] MEDS: SODIUM BICARBONATE (IV ADD) 100 MEQ in DEXTROSE 5% 1,000 ML IV (22:30)
[2018-02-21] MEDS: HEPARIN 5,000 UNIT/1 ML VIAL SC ×3 (05:35→22:00)
[2018-02-21 08:27] LABS: AADO2 Arterial 93.8 mmHg (7.0-24.0); Allen Test ACCEPTAB; Arterial Base Excess -6.5 mmol/L (-3.0-3); Arterial Blood Gas Oxygen Sat 93.7 mmHG (95.0-98.0); Arterial COHb 0.3 % (0.0-3.0); Arterial Fraction of Oxyhgb 93.3 % (93.0-99.0); Arterial HCO3 15.8 mmol/L (22.0-26.0); Arterial MetHb 0.1 % (0.0-1.5); Arterial pCO2 22.3 mmhg (35-45); MODE NASAL CANNULA; Site Left Radial
[2018-02-21 08:54] LABS: ADD MAN DIFF? NO
[2018-02-21 08:59] LABS: WHITE BLOOD COUNT 14.4 10^3/ul (4.8-10.8)
[2018-02-21 08:59] LABS: BASOPHILS % 0.2 % (0.0-2.0); EOSINOPHILS % 0.1 % (0.0-7.0); HEMATOCRIT 28.9 % (42.0-52.0); HEMOGLOBIN 8.9 g/dl (14.0-18.0); LYMPHOCYTES # 0.7 10^3/ul (0.8-2.9); LYMPHOCYTES % 4.6 % (15.0-51.0); MEAN CORPUSCULAR HEMOGLOBIN 27.7 pg (29.0-33.0); MEAN CORPUSCULAR HGB CONC 30.8 g/dl (32.0-37.0); MEAN PLATELET VOLUME 9.4 fl (7.4-10.4); MONOCYTE # 0.5 10^3/ul (0.3-0.9); MONOCYTES % 3.1 % (0.0-11.0); NEUTROPHIL # 13.2 10^3/ul (1.6-7.5); NEUTROPHILS % 91.2 % (39.0-77.0); PLATELET COUNT 400 10^3/UL (140-415); RED BLOOD COUNT 3.21 10^6/ul (4.70-6.10); RED CELL DISTRIBUTION WIDTH 20.8 % (11.5-14.5)
[2018-02-21] MEDS: L ACIDOPHIL/B LACTIS/B LONGUM CAPSULE PO ×2 (09:00→21:14)
[2018-02-21 09:18] LABS: INR 1.32; PARTIAL THROMBOPLASTIN TIME 35.7 Sec (23.0-35.0); PROTIME 16.6 Sec (11.9-14.9); PT RATIO 1.3
[2018-02-21 09:20] LABS: ANION GAP 18 (5-13); BLOOD UREA NITROGEN 47 mg/dl (7-20); CALCIUM 7.6 mg/dl (8.4-10.2); CARBON DIOXIDE 16 mmol/L (21-31); CHLORIDE 117 mmol/L (97-110); Estimated GFR 16 mL/min (>60); GLUCOSE 136 mg/dl (70-220); POTASSIUM 3.3 mmol/L (3.5-5.1); SODIUM 151 mmol/L (135-144)
[2018-02-21] MEDS: CHLORHEXIDINE GLUCONATE 15 ML UD CUP MT ×2 (09:52→20:00)
[2018-02-21] MEDS: NYSTATIN SUSP 5 ML CUP PO ×4 (09:52→21:14)
[2018-02-21] MEDS: AMPICILLIN/SULB 3 GM/NS (PMX) 100 ML IVPB ×2 (09:53→21:14)
[2018-02-21] MEDS: COLLAGENASE 5 GM (UD JAR) TOP (09:55)
[2018-02-21] MEDS: CIPROFLOXACIN 400MG/D5W 200 ML IVPB (09:55)
[2018-02-21] MEDS: BALSAM PERU/CASTOR OIL 60 GM TUBE TOP (10:37)
[2018-02-21] MEDS: SODIUM BICARBONATE (IV ADD) 100 MEQ in DEXTROSE 5% 1,000 ML IV ×3 (10:38→23:24)
[2018-02-21] MEDS: POTASSIUM CHLORIDE 100 ML IVPB ×2 (11:04→12:52)
[2018-02-21] MEDS ORDERED: HEPARIN 5,000 UNIT/0.5 ML VIAL (23:53)
[2018-02-22 05:09] LABS: ADD MAN DIFF? NO
[2018-02-22 05:11] LABS: WHITE BLOOD COUNT 12.4 10^3/ul (4.8-10.8)
[2018-02-22 05:11] LABS: BASOPHILS % 0.3 % (0.0-2.0); EOSINOPHILS # 0.1 10^3/ul (0.0-0.5); EOSINOPHILS % 0.5 % (0.0-7.0); HEMATOCRIT 28.6 % (42.0-52.0); HEMOGLOBIN 8.7 g/dl (14.0-18.0); LYMPHOCYTES # 0.9 10^3/ul (0.8-2.9); LYMPHOCYTES % 7.5 % (15.0-51.0); MEAN CORPUSCULAR HEMOGLOBIN 27.7 pg (29.0-33.0); MEAN CORPUSCULAR HGB CONC 30.4 g/dl (32.0-37.0); MEAN CORPUSCULAR VOLUME 91.1 fl (82.0-101.0); MEAN PLATELET VOLUME 9.8 fl (7.4-10.4); MONOCYTE # 0.5 10^3/ul (0.3-0.9); MONOCYTES % 4.3 % (0.0-11.0); NEUTROPHIL # 10.7 10^3/ul (1.6-7.5); NEUTROPHILS % 86.6 % (39.0-77.0); NUCLEATED RED BLOOD CELLS% 0.2 /100WBC (0.0-0.0); PLATELET COUNT 296 10^3/UL (140-415); RED BLOOD COUNT 3.14 10^6/ul (4.70-6.10); RED CELL DISTRIBUTION WIDTH 21.6 % (11.5-14.5)
[2018-02-22 05:47] LABS: ANION GAP 14 (5-13); BLOOD UREA NITROGEN 47 mg/dl (7-20); CALCIUM 7.6 mg/dl (8.4-10.2); CARBON DIOXIDE 21 mmol/L (21-31); CHLORIDE 113 mmol/L (97-110); CREATININE 3.11 mg/dl (0.61-1.24); Estimated GFR 20 mL/min (>60); GLUCOSE 104 mg/dl (70-220); MAGNESIUM 2.2 mg/dl (1.7-2.5); PHOSPHORUS 5.4 mg/dl (2.5-4.9); POTASSIUM 3.4 mmol/L (3.5-5.1); SODIUM 148 mmol/L (135-144)
[2018-02-22] MEDS: SODIUM BICARBONATE (IV ADD) 100 MEQ in DEXTROSE 5% 1,000 ML IV (06:17)
[2018-02-22] MEDS: HEPARIN 5,000 UNIT/1 ML VIAL SC ×3 (06:29→21:08)
[2018-02-22] MEDS ORDERED: HEPARIN 1000 UNITS/ML 10 ML INJ (06:59)
[2018-02-22] MEDS ORDERED: LIDOCAINE 1% (STERILE-PAK) 30 ML INJ (06:59)
[2018-02-22 07:47] LABS: AADO2 Arterial 61.4 mmHg (7.0-24.0); Allen Test ACCEPTAB; Arterial Base Excess -1.1 mmol/L (-3.0-3); Arterial Blood Gas Oxygen Sat 94.3 mmHG (95.0-98.0); Arterial COHb 0 % (0.0-3.0); Arterial HCO3 21.6 mmol/L (22.0-26.0); Arterial MetHb 0.3 % (0.0-1.5); Arterial Total Hemglobin 9.3 g/dl (12.0-18.0); Arterial pCO2 28.9 mmhg (35-45); MODE NASAL CANNULA; Site Left Radial
[2018-02-22] MEDS ORDERED: POTASSIUM CHLORIDE 0 ML ×2 (08:03→08:05)
[2018-02-22] MEDS ORDERED: PROPOFOL 60 ML (08:04)
[2018-02-22] MEDS ORDERED: LIDOCAINE 2% (SDV) 5 ML INJ ×2 (08:04→10:04)
[2018-02-22] MEDS: POTASSIUM CHLORIDE 100 ML IVPB (08:18)
[2018-02-22] MEDS: SOD CHLORIDE 0.45% 1,000 ML IV ×2 (08:18→17:31)
[2018-02-22] MEDS: IOHEXOL 300MG/ML 30 ML BTL INJ (08:30)
[2018-02-22] MEDS ORDERED: MIDAZOLAM 1 MG/ML 2 ML INJ (08:31)
[2018-02-22] MEDS ORDERED: FENTAnyl 50 MCG/ML VIAL (08:31)
[2018-02-22] MEDS ORDERED: PHENYLephrine (100 MCG/ML) 5ML SYG (09:00)
[2018-02-22] MEDS: CIPROFLOXACIN 400MG/D5W 200 ML IVPB (09:00)
[2018-02-22] MEDS: L ACIDOPHIL/B LACTIS/B LONGUM CAPSULE PO ×2 (09:00→20:08)
[2018-02-22] MEDS ORDERED: PHENYLephrine 10 MG INJ (09:02)
[2018-02-22] MEDS ORDERED: IOHEXOL 300MG/ML 30 ML BTL (09:02)
[2018-02-22] MEDS: LIDOCAINE 1% (MPF) 5 ML VIAL SC (10:00)
[2018-02-22] MEDS ORDERED: ETOMIDATE 20 MG INJ (10:04)
[2018-02-22] MEDS: AMPICILLIN/SULB 3 GM/NS (PMX) 100 ML IVPB ×2 (10:53→20:06)
[2018-02-22] MEDS: CHLORHEXIDINE GLUCONATE 15 ML UD CUP MT ×2 (10:59→20:06)
[2018-02-22] MEDS: BALSAM PERU/CASTOR OIL 60 GM TUBE TOP (11:00)
[2018-02-22] MEDS: COLLAGENASE 5 GM (UD JAR) TOP (11:00)
[2018-02-22] MEDS: NYSTATIN SUSP 5 ML CUP PO ×4 (11:05→20:08)
[2018-02-22] MEDS ORDERED: HEPARIN 5,000 UNIT/0.5 ML VIAL (13:37)
[2018-02-23 04:28] LABS: CREATININE,URINE RANDOM 37.35 mg/dl (20-370)
[2018-02-23 04:28] LABS: SODIUM,URINE RANDOM 50 mmol/L (30-90)
[2018-02-23 04:42] LABS: ADD UMIC YES; UR ASCORBIC ACID NEGATIVE (NEGATIVE); UR BACTERIA FEW /HPF (NONE SEEN); UR BILIRUBIN (Dip) NEGATIVE (NEGATIVE); UR BLOOD (Dip) 3+ mg/dL (NEGATIVE); UR CLARITY SLIGHTLY CLOUDY (CLEAR); UR COLOR YELLOW (YELLOW); UR GLUCOSE (Dip) NEGATIVE (NEGATIVE); UR KETONES (Dip) NEGATIVE (NEGATIVE); UR LEUKOCYTE ESTERASE (Dip) 2+ Leu/ul (NEGATIVE); UR NITRITE (Dip) NEGATIVE (NEGATIVE); UR RBC > 182 /HPF (0-5); UR SPECIFIC GRAVITY (Dip) 1.014 (1.003-1.030); UR TOTAL PROTEIN (Dip) 2+ mg/dl (NEGATIVE); UR UROBILINOGEN (Dip) NEGATIVE (NEGATIVE); UR WBC 69 /HPF (0-5)
[2018-02-23] MEDS ORDERED: HEPARIN 5,000 UNIT/0.5 ML VIAL ×3 (04:57→19:58)
[2018-02-23 05:23] LABS: ADD MAN DIFF? NO
[2018-02-23 05:24] LABS: WHITE BLOOD COUNT 11.2 10^3/ul (4.8-10.8)
[2018-02-23 05:24] LABS: BASOPHIL # 0.1 10^3/ul (0.0-0.1); BASOPHILS % 0.4 % (0.0-2.0); EOSINOPHILS % 0.3 % (0.0-7.0); HEMATOCRIT 27.9 % (42.0-52.0); HEMOGLOBIN 8.7 g/dl (14.0-18.0); LYMPHOCYTES # 0.8 10^3/ul (0.8-2.9); LYMPHOCYTES % 7.2 % (15.0-51.0); MEAN CORPUSCULAR HEMOGLOBIN 27.8 pg (29.0-33.0); MEAN CORPUSCULAR HGB CONC 31.2 g/dl (32.0-37.0); MEAN CORPUSCULAR VOLUME 89.1 fl (82.0-101.0); MEAN PLATELET VOLUME 9.9 fl (7.4-10.4); MONOCYTE # 0.6 10^3/ul (0.3-0.9); NEUTROPHIL # 9.7 10^3/ul (1.6-7.5); NEUTROPHILS % 86.5 % (39.0-77.0); NUCLEATED RED BLOOD CELLS% 0.2 /100WBC (0.0-0.0); PLATELET COUNT 254 10^3/UL (140-415); RED BLOOD COUNT 3.13 10^6/ul (4.70-6.10); RED CELL DISTRIBUTION WIDTH 21.3 % (11.5-14.5)
[2018-02-23] MEDS: HEPARIN 5,000 UNIT/1 ML VIAL SC ×3 (05:48→21:13)
[2018-02-23 05:52] LABS: ANION GAP 11 (5-13); BLOOD UREA NITROGEN 35 mg/dl (7-20); CALCIUM 7.7 mg/dl (8.4-10.2); CARBON DIOXIDE 23 mmol/L (21-31); CHLORIDE 113 mmol/L (97-110); CREATININE 2.24 mg/dl (0.61-1.24); Estimated GFR 29 mL/min (>60); GLUCOSE 74 mg/dl (70-220); MAGNESIUM 2.1 mg/dl (1.7-2.5); PHOSPHORUS 4.3 mg/dl (2.5-4.9); SODIUM 147 mmol/L (135-144)
[2018-02-23 06:35] LABS: POTASSIUM 2.8 mmol/L (3.5-5.1)
[2018-02-23] MEDS ORDERED: POTASSIUM CHLORIDE 100 ML IVPB (08:00)
[2018-02-23] MEDS: COLLAGENASE 5 GM (UD JAR) TOP ×2 (09:00→09:12)
[2018-02-23] MEDS: NYSTATIN SUSP 5 ML CUP PO ×5 (09:00→21:00)
[2018-02-23] MEDS: BALSAM PERU/CASTOR OIL 60 GM TUBE TOP ×2 (09:00→09:13)
[2018-02-23] MEDS: L ACIDOPHIL/B LACTIS/B LONGUM CAPSULE PO ×3 (09:00→21:00)
[2018-02-23] MEDS: CHLORHEXIDINE GLUCONATE 15 ML UD CUP MT ×3 (09:12→20:00)
[2018-02-23] MEDS: POTASSIUM CHLORIDE 20 MEQ in SOD CHLORIDE 0.9% 100 ML IVPB ×3 (09:12→17:04)
[2018-02-23] MEDS: POTASSIUM CHLORIDE 20 MEQ POWDER FOR ORAL SOLN PO (09:45)
[2018-02-23] MEDS: POTASSIUM CHLORIDE 30 MEQ in DEXTROSE 5% 1,000 ML IV (09:45)
[2018-02-23 11:07] LABS: MAGNESIUM 2.2 mg/dl (1.7-2.5)
[2018-02-23] MEDS: AMPICILLIN/SULB 3 GM/NS (PMX) 100 ML IVPB ×2 (11:43→21:04)
[2018-02-23] MEDS: PANTOPRAZOLE (EC) 40 MG TAB PO (13:17)
[2018-02-23] MEDS: CIPROFLOXACIN 400MG/D5W 200 ML IVPB (13:17)
[2018-02-24] MEDS ORDERED: HEPARIN 5,000 UNIT/0.5 ML VIAL ×3 (05:33→22:01)
[2018-02-24] MEDS: POTASSIUM CHLORIDE 30 MEQ in DEXTROSE 5% 1,000 ML IV ×2 (05:47→12:34)
[2018-02-24] MEDS: HEPARIN 5,000 UNIT/1 ML VIAL SC ×3 (05:50→22:15)
[2018-02-24] MEDS: PANTOPRAZOLE (EC) 40 MG TAB PO (05:51)
[2018-02-24 06:03] LABS: ADD MAN DIFF? NO
[2018-02-24 06:05] LABS: BASOPHIL # 0.1 10^3/ul (0.0-0.1); BASOPHILS % 0.4 % (0.0-2.0); EOSINOPHILS # 0.1 10^3/ul (0.0-0.5); EOSINOPHILS % 0.5 % (0.0-7.0); HEMOGLOBIN 9.4 g/dl (14.0-18.0); LYMPHOCYTES # 1.1 10^3/ul (0.8-2.9); LYMPHOCYTES % 9.7 % (15.0-51.0); MEAN CORPUSCULAR HGB CONC 30.3 g/dl (32.0-37.0); MEAN CORPUSCULAR VOLUME 92.3 fl (82.0-101.0); MEAN PLATELET VOLUME 10.3 fl (7.4-10.4); MONOCYTE # 0.6 10^3/ul (0.3-0.9); MONOCYTES % 4.7 % (0.0-11.0); NEUTROPHIL # 9.9 10^3/ul (1.6-7.5); NEUTROPHILS % 83.8 % (39.0-77.0); PLATELET COUNT 273 10^3/UL (140-415); RED BLOOD COUNT 3.36 10^6/ul (4.70-6.10); RED CELL DISTRIBUTION WIDTH 21.3 % (11.5-14.5)
[2018-02-24 06:05] LABS: WHITE BLOOD COUNT 11.8 10^3/ul (4.8-10.8)
[2018-02-24 06:46] LABS: ANION GAP 11 (5-13); BLOOD UREA NITROGEN 30 mg/dl (7-20); CALCIUM 8.4 mg/dl (8.4-10.2); CARBON DIOXIDE 22 mmol/L (21-31); CHLORIDE 114 mmol/L (97-110); Estimated GFR 40 mL/min (>60); GLUCOSE 123 mg/dl (70-220); MAGNESIUM 2.1 mg/dl (1.7-2.5); PHOSPHORUS 3.7 mg/dl (2.5-4.9); POTASSIUM 3.6 mmol/L (3.5-5.1); SODIUM 147 mmol/L (135-144)
[2018-02-24] MEDS: NYSTATIN SUSP 5 ML CUP PO ×4 (09:00→21:00)
[2018-02-24] MEDS: L ACIDOPHIL/B LACTIS/B LONGUM CAPSULE PO ×2 (09:00→21:00)
[2018-02-24] MEDS: AMPICILLIN/SULB 3 GM/NS (PMX) 100 ML IVPB ×2 (09:01→21:00)
[2018-02-24] MEDS: CIPROFLOXACIN 400MG/D5W 200 ML IVPB (09:01)
[2018-02-24] MEDS: CHLORHEXIDINE GLUCONATE 15 ML UD CUP MT ×2 (09:09→19:59)
[2018-02-24] MEDS: COLLAGENASE 5 GM (UD JAR) TOP (09:09)
[2018-02-24] MEDS: BALSAM PERU/CASTOR OIL 60 GM TUBE TOP (09:10)
[2018-02-24 16:18] LABS: CREATININE, RANDOM URINE 40 mg/dL (20-320); MICROALBUMIN 39.7 mg/dL; MICROALBUMIN/CREATININE RATIO 993 (<30)
[2018-02-25] MEDS: POTASSIUM CHLORIDE 30 MEQ in DEXTROSE 5% 1,000 ML IV (02:01)
[2018-02-25] MEDS ORDERED: HEPARIN 5,000 UNIT/0.5 ML VIAL ×2 (05:37→21:42)
[2018-02-25] MEDS: HEPARIN 5,000 UNIT/1 ML VIAL SC ×3 (06:00→22:01)
[2018-02-25] MEDS: PANTOPRAZOLE (EC) 40 MG TAB PO (06:00)
[2018-02-25] MEDS: L ACIDOPHIL/B LACTIS/B LONGUM CAPSULE PO ×2 (09:00→21:00)
[2018-02-25] MEDS: NYSTATIN SUSP 5 ML CUP PO ×4 (09:00→21:00)
[2018-02-25] MEDS: CHLORHEXIDINE GLUCONATE 15 ML UD CUP MT ×2 (09:43→19:53)
[2018-02-25] MEDS: BALSAM PERU/CASTOR OIL 60 GM TUBE TOP (09:45)
[2018-02-25] MEDS: COLLAGENASE 5 GM (UD JAR) TOP (09:46)
[2018-02-25] MEDS: LIDOCAINE 1% (MPF) 5 ML VIAL SC (11:55)
[2018-02-25] MEDS: SOD CHLORIDE 0.9% 100 ML (12:30)
[2018-02-26 05:17] LABS: ADD MAN DIFF? NO
[2018-02-26 05:25] LABS: BASOPHIL # 0.1 10^3/ul (0.0-0.1); BASOPHILS % 0.4 % (0.0-2.0); EOSINOPHILS % 0.3 % (0.0-7.0); HEMOGLOBIN 9.4 g/dl (14.0-18.0); LYMPHOCYTES % 8.6 % (15.0-51.0); MEAN CORPUSCULAR HEMOGLOBIN 27.5 pg (29.0-33.0); MEAN CORPUSCULAR HGB CONC 30.3 g/dl (32.0-37.0); MEAN CORPUSCULAR VOLUME 90.6 fl (82.0-101.0); MONOCYTE # 0.4 10^3/ul (0.3-0.9); MONOCYTES % 3.7 % (0.0-11.0); NEUTROPHIL # 10.3 10^3/ul (1.6-7.5); NEUTROPHILS % 86.2 % (39.0-77.0); NUCLEATED RED BLOOD CELLS% 0.3 /100WBC (0.0-0.0); PLATELET COUNT 256 10^3/UL (140-415); RED BLOOD COUNT 3.42 10^6/ul (4.70-6.10)
[2018-02-26] MEDS ORDERED: HEPARIN 5,000 UNIT/0.5 ML VIAL ×3 (05:53→20:08)
[2018-02-26 05:55] LABS: ANION GAP 12 (5-13); BLOOD UREA NITROGEN 28 mg/dl (7-20); CALCIUM 8.4 mg/dl (8.4-10.2); CARBON DIOXIDE 20 mmol/L (21-31); CHLORIDE 113 mmol/L (97-110); Estimated GFR 47 mL/min (>60); GLUCOSE 64 mg/dl (70-220); PHOSPHORUS 4.1 mg/dl (2.5-4.9); POTASSIUM 3.6 mmol/L (3.5-5.1); SODIUM 145 mmol/L (135-144)
[2018-02-26] MEDS: PANTOPRAZOLE (EC) 40 MG TAB PO (06:00)
[2018-02-26] MEDS: HEPARIN 5,000 UNIT/1 ML VIAL SC ×3 (06:12→21:03)
[2018-02-26] MEDS: NYSTATIN SUSP 5 ML CUP PO ×4 (09:00→21:00)
[2018-02-26] MEDS: L ACIDOPHIL/B LACTIS/B LONGUM CAPSULE PO ×2 (09:00→21:00)
[2018-02-26] MEDS: COLLAGENASE 5 GM (UD JAR) TOP (09:49)
[2018-02-26] MEDS: CHLORHEXIDINE GLUCONATE 15 ML UD CUP MT ×2 (09:49→20:00)
[2018-02-26] MEDS: BALSAM PERU/CASTOR OIL 60 GM TUBE TOP (09:53)
[2018-02-27] MEDS ORDERED: HEPARIN 5,000 UNIT/0.5 ML VIAL ×3 (05:22→20:17)
[2018-02-27] MEDS: HEPARIN 5,000 UNIT/1 ML VIAL SC ×3 (05:58→21:52)
[2018-02-27] MEDS: PANTOPRAZOLE (EC) 40 MG TAB PO (05:58)
[2018-02-27] MEDS: CHLORHEXIDINE GLUCONATE 15 ML UD CUP MT ×2 (08:00→20:00)
[2018-02-27] MEDS: NYSTATIN SUSP 5 ML CUP PO ×4 (09:00→21:00)
[2018-02-27] MEDS: L ACIDOPHIL/B LACTIS/B LONGUM CAPSULE PO ×2 (09:00→21:00)
[2018-02-27 10:39] LABS: ADD MAN DIFF? NO
[2018-02-27 10:41] LABS: BASOPHIL # 0.1 10^3/ul (0.0-0.1); BASOPHILS % 0.4 % (0.0-2.0); EOSINOPHILS % 0.3 % (0.0-7.0); HEMATOCRIT 28.4 % (42.0-52.0); HEMOGLOBIN 8.7 g/dl (14.0-18.0); LYMPHOCYTES # 1.1 10^3/ul (0.8-2.9); LYMPHOCYTES % 8.5 % (15.0-51.0); MEAN CORPUSCULAR HEMOGLOBIN 27.6 pg (29.0-33.0); MEAN CORPUSCULAR HGB CONC 30.6 g/dl (32.0-37.0); MEAN CORPUSCULAR VOLUME 90.2 fl (82.0-101.0); MEAN PLATELET VOLUME 10.6 fl (7.4-10.4); MONOCYTE # 0.6 10^3/ul (0.3-0.9); MONOCYTES % 4.4 % (0.0-11.0); NEUTROPHIL # 11.2 10^3/ul (1.6-7.5); NEUTROPHILS % 85.8 % (39.0-77.0); NUCLEATED RED BLOOD CELLS% 0.2 /100WBC (0.0-0.0); PLATELET COUNT 226 10^3/UL (140-415); RED BLOOD COUNT 3.15 10^6/ul (4.70-6.10); RED CELL DISTRIBUTION WIDTH 21.2 % (11.5-14.5)
[2018-02-27 11:05] LABS: ANION GAP 9 (5-13); BLOOD UREA NITROGEN 31 mg/dl (7-20); CALCIUM 7.9 mg/dl (8.4-10.2); CARBON DIOXIDE 21 mmol/L (21-31); CHLORIDE 115 mmol/L (97-110); CREATININE 1.45 mg/dl (0.61-1.24); Estimated GFR 49 mL/min (>60); GLUCOSE 91 mg/dl (70-220); POTASSIUM 3.3 mmol/L (3.5-5.1); SODIUM 145 mmol/L (135-144)
[2018-02-27] MEDS: BALSAM PERU/CASTOR OIL 60 GM TUBE TOP (14:28)
[2018-02-27] MEDS: COLLAGENASE 5 GM (UD JAR) TOP (14:28)
[2018-02-28] MEDS ORDERED: HEPARIN 5,000 UNIT/0.5 ML VIAL ×2 (05:11→19:40)
[2018-02-28] MEDS: HEPARIN 5,000 UNIT/1 ML VIAL SC ×3 (06:52→22:00)
[2018-02-28] MEDS: PANTOPRAZOLE (EC) 40 MG TAB PO (06:52)
[2018-02-28] MEDS: CHLORHEXIDINE GLUCONATE 15 ML UD CUP MT ×2 (08:00→20:00)
[2018-02-28] MEDS: L ACIDOPHIL/B LACTIS/B LONGUM CAPSULE PO ×2 (09:00→21:10)
[2018-02-28] MEDS: NYSTATIN SUSP 5 ML CUP PO ×4 (09:00→21:10)
[2018-02-28] MEDS: SOD CHLORIDE 0.45% 1,000 ML IV ×2 (09:33→21:10)
[2018-02-28] MEDS: BALSAM PERU/CASTOR OIL 60 GM TUBE TOP (12:22)
[2018-02-28] MEDS: COLLAGENASE 5 GM (UD JAR) TOP (12:22)
[2018-02-28] MEDS: [UNRECOGNIZED DRUG - OTHER] MC (18:14)
[2018-02-28 22:41] LABS: ADD MAN DIFF? NO
[2018-02-28 22:43] LABS: WHITE BLOOD COUNT 11.2 10^3/ul (4.8-10.8)
[2018-02-28 22:43] LABS: BASOPHILS % 0.3 % (0.0-2.0); EOSINOPHILS % 0.2 % (0.0-7.0); HEMATOCRIT 28.2 % (42.0-52.0); HEMOGLOBIN 8.7 g/dl (14.0-18.0); LYMPHOCYTES # 1.2 10^3/ul (0.8-2.9); LYMPHOCYTES % 10.7 % (15.0-51.0); MEAN CORPUSCULAR HEMOGLOBIN 27.9 pg (29.0-33.0); MEAN CORPUSCULAR HGB CONC 30.9 g/dl (32.0-37.0); MEAN CORPUSCULAR VOLUME 90.4 fl (82.0-101.0); MEAN PLATELET VOLUME 10.8 fl (7.4-10.4); MONOCYTE # 0.4 10^3/ul (0.3-0.9); MONOCYTES % 3.4 % (0.0-11.0); NEUTROPHIL # 9.5 10^3/ul (1.6-7.5); PLATELET COUNT 217 10^3/UL (140-415); RED BLOOD COUNT 3.12 10^6/ul (4.70-6.10); RED CELL DISTRIBUTION WIDTH 21.2 % (11.5-14.5)
[2018-02-28 22:59] LABS: BLOOD UREA NITROGEN 32 mg/dl (7-20); CALCIUM 7.8 mg/dl (8.4-10.2); CARBON DIOXIDE 22 mmol/L (21-31); CREATININE 1.27 mg/dl (0.61-1.24); Estimated GFR 57 mL/min (>60); GLUCOSE 70 mg/dl (70-220); PHOSPHORUS 4.1 mg/dl (2.5-4.9); POTASSIUM 3.1 mmol/L (3.5-5.1); SODIUM 145 mmol/L (135-144)
[2018-02-28 23:30] LABS: ANION GAP 9 (5-13); CHLORIDE 114 mmol/L (97-110)
[2018-03-01] MEDS ORDERED: HEPARIN 5,000 UNIT/0.5 ML VIAL ×3 (05:19→21:26)
[2018-03-01] MEDS: PANTOPRAZOLE (EC) 40 MG TAB PO (06:04)
[2018-03-01] MEDS: HEPARIN 5,000 UNIT/1 ML VIAL SC ×3 (06:08→21:47)
[2018-03-01 06:39] LABS: ADD MAN DIFF? NO
[2018-03-01 06:57] LABS: BASOPHILS % 0.4 % (0.0-2.0); EOSINOPHILS # 0.1 10^3/ul (0.0-0.5); EOSINOPHILS % 0.7 % (0.0-7.0); HEMATOCRIT 28.5 % (42.0-52.0); HEMOGLOBIN 8.7 g/dl (14.0-18.0); LYMPHOCYTES % 9.4 % (15.0-51.0); MEAN CORPUSCULAR HGB CONC 30.5 g/dl (32.0-37.0); MEAN CORPUSCULAR VOLUME 91.6 fl (82.0-101.0); MONOCYTE # 0.4 10^3/ul (0.3-0.9); MONOCYTES % 3.5 % (0.0-11.0); NEUTROPHIL # 9.2 10^3/ul (1.6-7.5); NEUTROPHILS % 85.5 % (39.0-77.0); PLATELET COUNT 212 10^3/UL (140-415); RED BLOOD COUNT 3.11 10^6/ul (4.70-6.10); RED CELL DISTRIBUTION WIDTH 21.2 % (11.5-14.5)
[2018-03-01 06:57] LABS: WHITE BLOOD COUNT 10.8 10^3/ul (4.8-10.8)
[2018-03-01 07:22] LABS: ANION GAP 9 (5-13); BLOOD UREA NITROGEN 33 mg/dl (7-20); CALCIUM 7.2 mg/dl (8.4-10.2); CARBON DIOXIDE 22 mmol/L (21-31); CHLORIDE 114 mmol/L (97-110); CREATININE 1.26 mg/dl (0.61-1.24); Estimated GFR 57 mL/min (>60); GLUCOSE 71 mg/dl (70-220); SODIUM 145 mmol/L (135-144)
[2018-03-01 07:28] LABS: POTASSIUM 2.9 mmol/L (3.5-5.1)
[2018-03-01] MEDS: CHLORHEXIDINE GLUCONATE 15 ML UD CUP MT ×2 (08:00→19:56)
[2018-03-01] MEDS: POTASSIUM CHLORIDE (SR) 20 MEQ TAB PO (08:45)
[2018-03-01] MEDS: COLLAGENASE 5 GM (UD JAR) TOP ×2 (08:45→09:00)
[2018-03-01] MEDS: BALSAM PERU/CASTOR OIL 60 GM TUBE TOP ×2 (08:47→09:00)
[2018-03-01] MEDS: [UNRECOGNIZED DRUG - OTHER] MC ×3 (08:47→23:58)
[2018-03-01] MEDS: NYSTATIN SUSP 5 ML CUP PO ×4 (08:48→21:46)
[2018-03-01] MEDS: L ACIDOPHIL/B LACTIS/B LONGUM CAPSULE PO ×2 (08:49→20:40)
[2018-03-01] MEDS: SOD CHLORIDE 0.45% 1,000 ML IV ×2 (11:15→23:56)
[2018-03-02] MEDS ORDERED: HEPARIN 5,000 UNIT/0.5 ML VIAL ×2 (04:37→20:06)
[2018-03-02] MEDS: PANTOPRAZOLE (EC) 40 MG TAB PO (06:00)
[2018-03-02] MEDS: HEPARIN 5,000 UNIT/1 ML VIAL SC ×3 (06:00→22:00)
[2018-03-02] MEDS: CHLORHEXIDINE GLUCONATE 15 ML UD CUP MT ×2 (08:00→20:00)
[2018-03-02] MEDS: NYSTATIN SUSP 5 ML CUP PO ×4 (09:00→21:00)
[2018-03-02] MEDS: L ACIDOPHIL/B LACTIS/B LONGUM CAPSULE PO ×2 (09:00→21:00)
[2018-03-02] MEDS: COLLAGENASE 5 GM (UD JAR) TOP (09:00)
[2018-03-02] MEDS: SOD CHLORIDE 0.45% 1,000 ML IV (13:42)
[2018-03-02] MEDS: BALSAM PERU/CASTOR OIL 60 GM TUBE TOP (13:46)
[2018-03-02 14:05] LABS: ADD MAN DIFF? NO
[2018-03-02 14:10] LABS: BASOPHILS % 0.3 % (0.0-2.0); EOSINOPHILS % 0.3 % (0.0-7.0); HEMATOCRIT 31.5 % (42.0-52.0); HEMOGLOBIN 9.7 g/dl (14.0-18.0); LYMPHOCYTES % 8.7 % (15.0-51.0); MEAN CORPUSCULAR HEMOGLOBIN 28.1 pg (29.0-33.0); MEAN CORPUSCULAR HGB CONC 30.8 g/dl (32.0-37.0); MEAN CORPUSCULAR VOLUME 91.3 fl (82.0-101.0); MEAN PLATELET VOLUME 11.5 fl (7.4-10.4); MONOCYTE # 0.3 10^3/ul (0.3-0.9); MONOCYTES % 2.5 % (0.0-11.0); NEUTROPHIL # 9.6 10^3/ul (1.6-7.5); NEUTROPHILS % 87.7 % (39.0-77.0); PLATELET COUNT 181 10^3/UL (140-415); RED BLOOD COUNT 3.45 10^6/ul (4.70-6.10); RED CELL DISTRIBUTION WIDTH 21.5 % (11.5-14.5)
[2018-03-02 14:29] LABS: ANION GAP 10 (5-13); BLOOD UREA NITROGEN 33 mg/dl (7-20); CALCIUM 7.6 mg/dl (8.4-10.2); CARBON DIOXIDE 21 mmol/L (21-31); CHLORIDE 112 mmol/L (97-110); CREATININE 1.17 mg/dl (0.61-1.24); Estimated GFR > 60 mL/min (>60); GLUCOSE 67 mg/dl (70-220); MAGNESIUM 2.1 mg/dl (1.7-2.5); PHOSPHORUS 4.1 mg/dl (2.5-4.9); POTASSIUM 3.7 mmol/L (3.5-5.1); SODIUM 143 mmol/L (135-144)
[2018-03-02] MEDS: [UNRECOGNIZED DRUG - OTHER] MC (15:10)
[2018-03-03] MEDS: SOD CHLORIDE 0.45% 1,000 ML IV (02:40)
[2018-03-03] MEDS ORDERED: HEPARIN 5,000 UNIT/0.5 ML VIAL ×2 (04:32→20:51)
[2018-03-03] MEDS: PANTOPRAZOLE (EC) 40 MG TAB PO (05:56)
[2018-03-03] MEDS: [UNRECOGNIZED DRUG - OTHER] MC (05:56)
[2018-03-03] MEDS: HEPARIN 5,000 UNIT/1 ML VIAL SC ×3 (05:57→22:18)
[2018-03-03 05:58] LABS: ADD MAN DIFF? NO
[2018-03-03 05:59] LABS: WHITE BLOOD COUNT 10.7 10^3/ul (4.8-10.8)
[2018-03-03 05:59] LABS: BASOPHILS % 0.2 % (0.0-2.0); EOSINOPHILS % 0.1 % (0.0-7.0); HEMATOCRIT 27.8 % (42.0-52.0); HEMOGLOBIN 8.6 g/dl (14.0-18.0); LYMPHOCYTES # 0.9 10^3/ul (0.8-2.9); LYMPHOCYTES % 8.1 % (15.0-51.0); MEAN CORPUSCULAR HEMOGLOBIN 27.7 pg (29.0-33.0); MEAN CORPUSCULAR HGB CONC 30.9 g/dl (32.0-37.0); MEAN CORPUSCULAR VOLUME 89.4 fl (82.0-101.0); MONOCYTE # 0.3 10^3/ul (0.3-0.9); MONOCYTES % 2.4 % (0.0-11.0); NEUTROPHIL # 9.5 10^3/ul (1.6-7.5); NEUTROPHILS % 88.7 % (39.0-77.0); PLATELET COUNT 178 10^3/UL (140-415); RED BLOOD COUNT 3.11 10^6/ul (4.70-6.10); RED CELL DISTRIBUTION WIDTH 21.2 % (11.5-14.5)
[2018-03-03 06:28] LABS: ANION GAP 9 (5-13); BLOOD UREA NITROGEN 37 mg/dl (7-20); CALCIUM 7.2 mg/dl (8.4-10.2); CARBON DIOXIDE 22 mmol/L (21-31); CHLORIDE 111 mmol/L (97-110); CREATININE 1.17 mg/dl (0.61-1.24); Estimated GFR > 60 mL/min (>60); GLUCOSE 62 mg/dl (70-220); PHOSPHORUS 4.5 mg/dl (2.5-4.9); POTASSIUM 3.4 mmol/L (3.5-5.1); SODIUM 142 mmol/L (135-144)
[2018-03-03] MEDS: L ACIDOPHIL/B LACTIS/B LONGUM CAPSULE PO ×3 (09:00→21:00)
[2018-03-03] MEDS: COLLAGENASE 5 GM (UD JAR) TOP (09:00)
[2018-03-03] MEDS: BALSAM PERU/CASTOR OIL 60 GM TUBE TOP (09:00)
[2018-03-03] MEDS: POTASSIUM CHLORIDE (SR) 20 MEQ TAB PO (11:53)
[2018-03-03] MEDS: CHLORHEXIDINE GLUCONATE 15 ML UD CUP MT ×2 (11:54→22:22)
[2018-03-03] MEDS: NYSTATIN SUSP 5 ML CUP PO ×4 (11:54→22:21)
[2018-03-03] MEDS: MEGESTROL (40 MG/ML) 10ML CUP PO (14:00)
[2018-03-03] MEDS: DEXTROSE 5%-0.45% NACL 1,000 ML IV (15:38)
[2018-03-04] MEDS ORDERED: HEPARIN 5,000 UNIT/0.5 ML VIAL ×2 (05:02→14:48)
[2018-03-04] MEDS: PANTOPRAZOLE (EC) 40 MG TAB PO (05:58)
[2018-03-04] MEDS: DEXTROSE 5%-0.45% NACL 1,000 ML IV ×2 (05:58→18:32)
[2018-03-04] MEDS: [UNRECOGNIZED DRUG - OTHER] MC (05:58)
[2018-03-04] MEDS: HEPARIN 5,000 UNIT/1 ML VIAL SC ×3 (06:50→22:00)
[2018-03-04 07:01] LABS: ANION GAP 9 (5-13); BLOOD UREA NITROGEN 41 mg/dl (7-20); CARBON DIOXIDE 21 mmol/L (21-31); CHLORIDE 110 mmol/L (97-110); CREATININE 1.21 mg/dl (0.61-1.24); Estimated GFR 60 mL/min (>60); GLUCOSE 54 mg/dl (70-220); PHOSPHORUS 4.6 mg/dl (2.5-4.9); POTASSIUM 3.9 mmol/L (3.5-5.1); SODIUM 140 mmol/L (135-144)
[2018-03-04] MEDS: L ACIDOPHIL/B LACTIS/B LONGUM CAPSULE PO ×2 (09:00→21:00)
[2018-03-04] MEDS: MEGESTROL (40 MG/ML) 10ML CUP PO (09:00)
[2018-03-04] MEDS: COLLAGENASE 5 GM (UD JAR) TOP (09:00)
[2018-03-04] MEDS: BALSAM PERU/CASTOR OIL 60 GM TUBE TOP (09:00)
[2018-03-04] MEDS: CHLORHEXIDINE GLUCONATE 15 ML UD CUP MT ×2 (11:49→20:00)
[2018-03-04] MEDS: NYSTATIN SUSP 5 ML CUP PO ×4 (11:49→21:00)
[2018-03-05] MEDS: HEPARIN 5,000 UNIT/1 ML VIAL SC ×3 (06:00→21:47)
[2018-03-05] MEDS: PANTOPRAZOLE (EC) 40 MG TAB PO (06:00)
[2018-03-05] MEDS ORDERED: HEPARIN 5,000 UNIT/0.5 ML VIAL ×3 (06:12→21:38)
[2018-03-05] MEDS: DEXTROSE 5%-0.45% NACL 1,000 ML IV ×2 (06:39→20:17)
[2018-03-05 07:10] LABS: ANION GAP 9 (5-13); BLOOD UREA NITROGEN 47 mg/dl (7-20); CALCIUM 6.8 mg/dl (8.4-10.2); CARBON DIOXIDE 22 mmol/L (21-31); CHLORIDE 110 mmol/L (97-110); Estimated GFR > 60 mL/min (>60); GLUCOSE 55 mg/dl (70-220); PHOSPHORUS 4.5 mg/dl (2.5-4.9); POTASSIUM 3.8 mmol/L (3.5-5.1); SODIUM 141 mmol/L (135-144)
[2018-03-05] MEDS: NYSTATIN SUSP 5 ML CUP PO ×5 (08:45→20:57)
[2018-03-05] MEDS: L ACIDOPHIL/B LACTIS/B LONGUM CAPSULE PO ×2 (08:45→20:57)
[2018-03-05] MEDS: CHLORHEXIDINE GLUCONATE 15 ML UD CUP MT ×2 (08:45→20:16)
[2018-03-05] MEDS: MEGESTROL (40 MG/ML) 10ML CUP PO (08:45)
[2018-03-05] MEDS: BALSAM PERU/CASTOR OIL 60 GM TUBE TOP (08:46)
[2018-03-05] MEDS: COLLAGENASE 5 GM (UD JAR) TOP (08:46)
[2018-03-05] MEDS: [UNRECOGNIZED DRUG - OTHER] MC (17:37)
[2018-03-06] MEDS ORDERED: HEPARIN 5,000 UNIT/0.5 ML VIAL ×3 (05:45→20:15)
[2018-03-06] MEDS: PANTOPRAZOLE (EC) 40 MG TAB PO (05:52)
[2018-03-06] MEDS: [UNRECOGNIZED DRUG - OTHER] MC ×2 (05:53→17:39)
[2018-03-06] MEDS: HEPARIN 5,000 UNIT/1 ML VIAL SC ×3 (06:01→21:05)
[2018-03-06 06:19] LABS: ADD MAN DIFF? NO
[2018-03-06 06:36] LABS: BASOPHILS % 0.1 % (0.0-2.0); EOSINOPHILS % 0.2 % (0.0-7.0); HEMATOCRIT 27.6 % (42.0-52.0); HEMOGLOBIN 8.6 g/dl (14.0-18.0); LYMPHOCYTES # 0.7 10^3/ul (0.8-2.9); LYMPHOCYTES % 7.1 % (15.0-51.0); MEAN CORPUSCULAR HEMOGLOBIN 28.1 pg (29.0-33.0); MEAN CORPUSCULAR HGB CONC 31.2 g/dl (32.0-37.0); MEAN CORPUSCULAR VOLUME 90.2 fl (82.0-101.0); MEAN PLATELET VOLUME 11.5 fl (7.4-10.4); MONOCYTE # 0.3 10^3/ul (0.3-0.9); MONOCYTES % 2.7 % (0.0-11.0); NEUTROPHIL # 9.1 10^3/ul (1.6-7.5); NEUTROPHILS % 89.4 % (39.0-77.0); PLATELET COUNT 145 10^3/UL (140-415); RED BLOOD COUNT 3.06 10^6/ul (4.70-6.10); RED CELL DISTRIBUTION WIDTH 21.3 % (11.5-14.5)
[2018-03-06 06:36] LABS: WHITE BLOOD COUNT 10.1 10^3/ul (4.8-10.8)
[2018-03-06 06:48] LABS: ANION GAP 10 (5-13); BLOOD UREA NITROGEN 60 mg/dl (7-20); CALCIUM 6.4 mg/dl (8.4-10.2); CARBON DIOXIDE 21 mmol/L (21-31); CHLORIDE 109 mmol/L (97-110); CREATININE 1.31 mg/dl (0.61-1.24); Estimated GFR 55 mL/min (>60); GLUCOSE 58 mg/dl (70-220); POTASSIUM 3.8 mmol/L (3.5-5.1); SODIUM 140 mmol/L (135-144)
[2018-03-06] MEDS: NYSTATIN SUSP 5 ML CUP PO ×4 (08:54→21:00)
[2018-03-06] MEDS: MEGESTROL (40 MG/ML) 10ML CUP PO (08:55)
[2018-03-06] MEDS: BALSAM PERU/CASTOR OIL 60 GM TUBE TOP (08:57)
[2018-03-06] MEDS: CHLORHEXIDINE GLUCONATE 15 ML UD CUP MT ×2 (08:57→20:00)
[2018-03-06] MEDS: DEXTROSE 5%-0.45% NACL 1,000 ML IV ×2 (08:57→21:04)
[2018-03-06] MEDS: COLLAGENASE 5 GM (UD JAR) TOP (08:57)
[2018-03-06] MEDS: L ACIDOPHIL/B LACTIS/B LONGUM CAPSULE PO ×2 (09:00→21:00)
[2018-03-07] MEDS ORDERED: HEPARIN 5,000 UNIT/0.5 ML VIAL ×2 (05:17→20:13)
[2018-03-07] MEDS: PANTOPRAZOLE (EC) 40 MG TAB PO (05:40)
[2018-03-07] MEDS: HEPARIN 5,000 UNIT/1 ML VIAL SC ×3 (05:40→22:00)
[2018-03-07] MEDS: CHLORHEXIDINE GLUCONATE 15 ML UD CUP MT ×2 (08:00→20:00)
[2018-03-07] MEDS: NYSTATIN SUSP 5 ML CUP PO ×4 (09:00→21:00)
[2018-03-07] MEDS: MEGESTROL (40 MG/ML) 10ML CUP PO (09:00)
[2018-03-07] MEDS: L ACIDOPHIL/B LACTIS/B LONGUM CAPSULE PO ×2 (09:00→21:00)
[2018-03-07 09:39] LABS: ANION GAP 10 (5-13); BLOOD UREA NITROGEN 74 mg/dl (7-20); CARBON DIOXIDE 20 mmol/L (21-31); CHLORIDE 107 mmol/L (97-110); POTASSIUM 3.8 mmol/L (3.5-5.1); SODIUM 137 mmol/L (135-144)
[2018-03-07 09:44] LABS: GLUCOSE 44 mg/dl (70-220)
[2018-03-07 09:45] LABS: CALCIUM 5.9 mg/dl (8.4-10.2); Estimated GFR 46 mL/min (>60)
[2018-03-07 09:46] LABS: CREATININE 1.51 mg/dl (0.61-1.24)
[2018-03-07] MEDS: COLLAGENASE 5 GM (UD JAR) TOP (10:33)
[2018-03-07] MEDS: BALSAM PERU/CASTOR OIL 60 GM TUBE TOP (10:33)
[2018-03-07] MEDS ORDERED: FENTAnyl 50 MCG/ML VIAL (12:02)
[2018-03-07] MEDS ORDERED: MIDAZOLAM 1 MG/ML 2 ML INJ (12:03)
[2018-03-07] MEDS ORDERED: DEXTROSE 50% 50 ML SYRINGE (12:10)
[2018-03-07] MEDS: DEXTROSE 5%-0.45% NACL 1,000 ML IV (13:08)
[2018-03-07 17:34] LABS: ANION GAP 12 (5-13); BLOOD UREA NITROGEN 76 mg/dl (7-20); CARBON DIOXIDE 18 mmol/L (21-31); CHLORIDE 106 mmol/L (97-110); GLUCOSE 60 mg/dl (70-220); SODIUM 136 mmol/L (135-144)
[2018-03-07 17:41] LABS: Estimated GFR 49 mL/min (>60)
[2018-03-07 17:43] LABS: CREATININE 1.43 mg/dl (0.61-1.24)
[2018-03-08] MEDS: DEXTROSE 5%-0.45% NACL 1,000 ML IV (01:08)
[2018-03-08] MEDS: PANTOPRAZOLE (EC) 40 MG TAB PO (05:34)
[2018-03-08 05:59] LABS: ADD MAN DIFF? NO
[2018-03-08 06:05] LABS: WHITE BLOOD COUNT 8.6 10^3/ul (4.8-10.8)
[2018-03-08 06:05] LABS: ABNORMAL IP MESSAGE 1; EOSINOPHILS % 0.1 % (0.0-7.0); HEMATOCRIT 26.3 % (42.0-52.0); HEMOGLOBIN 8.6 g/dl (14.0-18.0); LYMPHOCYTES # 0.5 10^3/ul (0.8-2.9); LYMPHOCYTES % 5.5 % (15.0-51.0); MEAN CORPUSCULAR HEMOGLOBIN 28.4 pg (29.0-33.0); MEAN CORPUSCULAR HGB CONC 32.7 g/dl (32.0-37.0); MEAN CORPUSCULAR VOLUME 86.8 fl (82.0-101.0); MEAN PLATELET VOLUME 11.3 fl (7.4-10.4); MONOCYTE # 0.2 10^3/ul (0.3-0.9); MONOCYTES % 2.2 % (0.0-11.0); NEUTROPHIL # 7.9 10^3/ul (1.6-7.5); NEUTROPHILS % 91.7 % (39.0-77.0); PLATELET COUNT 110 10^3/UL (140-415); POSITIVE DIFF @See below; RED BLOOD COUNT 3.03 10^6/ul (4.70-6.10); RED CELL DISTRIBUTION WIDTH 20.7 % (11.5-14.5)
[2018-03-08 07:06] LABS: ANION GAP 13 (5-13); BLOOD UREA NITROGEN 83 mg/dl (7-20); CARBON DIOXIDE 16 mmol/L (21-31); CHLORIDE 108 mmol/L (97-110); GLUCOSE 78 mg/dl (70-220); MAGNESIUM 2.1 mg/dl (1.7-2.5); PHOSPHORUS 7.2 mg/dl (2.5-4.9); POTASSIUM 3.4 mmol/L (3.5-5.1); SODIUM 137 mmol/L (135-144)
[2018-03-08 07:09] LABS: CALCIUM 5.5 mg/dl (8.4-10.2)
[2018-03-08 07:12] LABS: Estimated GFR 49 mL/min (>60)
[2018-03-08 07:18] LABS: CREATININE 1.43 mg/dl (0.61-1.24)
[2018-03-08] MEDS: CHLORHEXIDINE GLUCONATE 15 ML UD CUP MT ×2 (08:00→20:28)
[2018-03-08] MEDS: NYSTATIN SUSP 5 ML CUP PO ×4 (09:06→20:28)
[2018-03-08] MEDS: MEGESTROL (40 MG/ML) 10ML CUP PO (09:06)
[2018-03-08] MEDS: CALCIUM GLUCONATE 10% 1 GM in DEXTROSE 5% 100 ML IVPB (09:07)
[2018-03-08] MEDS: L ACIDOPHIL/B LACTIS/B LONGUM CAPSULE PO ×2 (09:07→20:34)
[2018-03-08] MEDS: POTASSIUM CHLORIDE (SR) 20 MEQ TAB PO (09:07)
[2018-03-08] MEDS: BALSAM PERU/CASTOR OIL 60 GM TUBE TOP (09:08)
[2018-03-08] MEDS: COLLAGENASE 5 GM (UD JAR) TOP (09:08)
[2018-03-08] MEDS ORDERED: CALCIUM GLUCONATE 10% 2 GM in DEXTROSE 5% 100 ML IVPB (13:00)
[2018-03-08 13:03] LABS: ALANINE AMINOTRANSFERASE 51 IU/L (13-69); ALBUMIN 1.6 g/dl (3.3-4.9); ALKALINE PHOSPHATASE 234 IU/L (42-121); ASPARTATE AMINO TRANSFERASE 79 IU/L (15-46); BILIRUBIN,INDIRECT 0.1 mg/dl (0-1.1); BILIRUBIN,TOTAL 0.1 mg/dl (0.2-1.3); TOTAL PROTEIN 4.5 g/dl (6.1-8.1)
[2018-03-08] MEDS: FUROSEMIDE 20 MG INJ IM (22:26)
[2018-03-08] MEDS: ALBUTEROL/IPRATROPIUM (NEB) 3 ML AMP HHN (22:50)
== END 2018-03-09 02:59 | disposition expired | DRG 659 ==
LOC: TEL 02-16 06:17 → ICU 02-20 20:43 → TEL 02-14 21:30 → E/R 16:44 → PP2 02-22 21:36 → TEL 19:40
PROVIDERS: Internal Medicine
PROC: 0T25X0Z Change Drainage Device in Kidney, External Approach (ICD-10-PCS; 2018-02-10 10:30)
PROC: 0T25X0Z Change Drainage Device in Kidney, External Approach (ICD-10-PCS; 2018-02-10 10:30)
PROC: 0T9170Z Drainage of Left Kidney with Drainage Device, Via Natural or Artificial Opening (ICD-10-PCS; principal; 2018-02-10 11:40)
PROC: 0TP570Z Removal of Drainage Device from Kidney, Via Natural or Artificial Opening (ICD-10-PCS; 2018-02-10 11:40)
PROC: 5A09357 Assistance with Respiratory Ventilation, Less than 24 Consecutive Hours, Continuous Positive Airway Pressure (ICD-10-PCS; 2018-02-10 11:40)
PROC: 0D9670Z Drainage of Stomach with Drainage Device, Via Natural or Artificial Opening (ICD-10-PCS; 2018-02-10 11:40)
PROC: 02HV33Z Insertion of Infusion Device into Superior Vena Cava, Percutaneous Approach (ICD-10-PCS; 2018-02-10 11:40)
DX: T83.012A Breakdown (mechanical) of nephrostomy catheter, initial encounter (principal); L89.153 Pressure ulcer of sacral region, stage 3; A41.9 Sepsis, unspecified organism; E43 Unspecified severe protein-calorie malnutrition; K63.1 Perforation of intestine (nontraumatic); J18.9 Pneumonia, unspecified organism; J96.01 Acute respiratory failure with hypoxia; N17.0 Acute kidney failure with tubular necrosis; B37.0 Candidal stomatitis; E87.2 Acidosis; E87.0 Hyperosmolality and hypernatremia; C79.51 Secondary malignant neoplasm of bone; N13.8 Other obstructive and reflux uropathy; K56.699 Other intestinal obstruction unspecified as to partial versus complete obstruction; R18.8 Other ascites; Z68.1 Body mass index [BMI] 19.9 or less, adult; N39.0 Urinary tract infection, site not specified; C61 Malignant neoplasm of prostate; C67.9 Malignant neoplasm of bladder, unspecified; D63.0 Anemia in neoplastic disease; D50.9 Iron deficiency anemia, unspecified; E87.6 Hypokalemia; I46.9 Cardiac arrest, cause unspecified; K05.10 Chronic gingivitis, plaque induced; K76.9 Liver disease, unspecified; K59.00 Constipation, unspecified; N18.9 Chronic kidney disease, unspecified; R62.7 Adult failure to thrive; Z66 Do not resuscitate; Z92.21 Personal history of antineoplastic chemotherapy; Z91.19 Patient's noncompliance with other medical treatment and regimen; Z93.6 Other artificial openings of urinary tract status; Z87.891 Personal history of nicotine dependence
CPT/HCPCS: 36415; 36569; 36600; 71045; 71250; 74018; 74176; 74177; 74250; 74475; 76775; 76937; 80048; 80053; 80061; 80076; 80202; 81001; 81003; 82043; 82270; 82565; 82803; 82962; 83036; 83605; 83735; 84100; 84153; 84154; 84155; 84300; 84484; 84520; 85025; 85610; 85730; 87040; 87045; 87070; 87075; 87081; 87086; 87102; 87116; 90686; 93005; 93970; 94640; 94660; 96361; 96365; 97110; 97162; 97530; 99291-25